=== PATIENT | male | born 1945 | race Caucasian/White ===

== ENCOUNTER 2017-05-26 09:52 | Outpatient (CLI) | payer MEDICARE, OTHER ==
--- NOTE | 2017-05-26 12:04 | CT ---
CT ABDOMEN AND PELVIS WITH CONTRAST: HISTORY: Lymphoma. COMPARISON: There are multiple prior examinations, the most recent 01/15/17. FINDINGS: There is some scarring in the lung bases. No pericardial effusion. 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 The soft tissue attenuation of the proximal small bowel mesentery, throughout the mesenteric vessels is similar. No significant new lymph node enlargement. The haziness in the mesentery is similar. Mild diverticular disease sigmoid colon without active inflammation. The aortoiliac contour is similar. No aneurysmal dilatation. Aria hepatis lymph node is in the same plane of reference and measures 15 mm in short axis, similar to the comparison examination. Mild fatty atrophy of the pancreatic head and neck. Hypodensities of the kidneys are similar. There are moderate degenerative changes of the hip joints with subchondral sclerosis of the acetabulum and cyst formation. There is fusion of the L5-S1 disk s pace. Large bridging L4-5 osteophyte. IMPRESSION: Unchanged examination without evidence of disease progression. POS: [facility]
[2017-05-26] MEDS ORDERED: Iopamidol 370 76% 100 ML VIAL ONE (15:48)
== END 2017-05-26 09:53 | disposition home or self-care (01) ==
LOC: CT 09:52
PROVIDERS: ATTEND Internal Medicine Hematology & Oncology
DX: C85.90 Non-Hodgkin lymphoma, unspecified, unspecified site (principal)
CPT/HCPCS: 36415; 74177; 82565

== ENCOUNTER 2018-04-07 07:44 | Outpatient (CLI) | payer MEDICARE, OTHER ==
[2018-04-07] MEDS ORDERED: ISOVUE-370 76%-LOCM 1 ML ONE (12:00)
--- NOTE | 2018-04-07 12:34 | CT ---
CT ABDOMEN WITH CONTRAST CT PELVIS WITH CONTRAST: DATE: 04/07/2018 HISTORY: A 73-year-old male with C82.93, lymphoma. COMPARISON: 05/26/2017 TECHNIQUE: IV injection of iodinated contrast media: Isovue-370 70 mL. Oral contrast media: Administered. FINDINGS: The spleen is surgically absent. There is an accessory splenule abutting the undersurface of the esau vated left hemidiaphragm. Again noted is the facundo mesentery. Again noted are the multiple irregula rity-shaped, small soft tissue density nodules throughout the mesentery. The enlarged laya hepatis lymph nodes are unchanged. Again noted are the multiple tiny hypodensities throughout the bilateral renal parenchyma, which are too small to characterize, but at least the majority of which represent c ysts. No hydronephrosis. No significantly enlarged iliac chain lymph nodes. Normal urinary bladder , appendix, adrenals, and liver. No major pathology of the pancreas. No abdominal aortic aneurysm. No ascites or small bowel dilation. Sigmoid and descending colonic diverticulosis without diverticu litis. Lung bases are grossly clear. No major interval change overall. No destructive osseous lesi on. IMPRESSION: 1. No significant interval change. 2. Moderately enlarged laya hepatis lymph nodes. 3. Multiple irregularly-shaped, mildly enlarged mesenteric lymph nodes. 4. Facundo mesentery. 5. Status post splenectomy. [facility] POS: [facility]
== END 2018-04-07 07:45 | disposition home or self-care (01) ==
LOC: BICCT 07:44
PROVIDERS: ATTEND Internal Medicine Hematology & Oncology
DX: C85.90 Non-Hodgkin lymphoma, unspecified, unspecified site (principal); R59.0 Localized enlarged lymph nodes; Z90.81 Acquired absence of spleen
CPT/HCPCS: 74177; 82565

== ENCOUNTER 2019-02-24 07:30 | Outpatient (CLI) | payer MEDICARE ==
--- NOTE | 2019-02-24 09:08 | CT ---
CT ABDOMEN AND PELVIS WITH ORAL AND IV CONTRAST: HISTORY: Lymphoma. COMPARISON: 04/07/2018 FINDINGS: The patient is post splenectomy. An axillary splenule under the elevated left hemidiaphragm is again seen. The liver, pancreas and adrenal glands are normal. Bilateral renal cysts are again seen. No joe cified gallstones are noted. There has been interval improvement in the mildly enlarged mesenteric lymph nodes. Enlarged laya hep atis lymph node is again seen and is stable. No retroaortic lymph node abnormalities seen. The small bowel loops are not abnormally dilated. No free air or free fluid is seen in the abdomen or pelvis. There are degenerative changes in the spine. There are vascular calcifications without evide nce of aneurysmal dilatation of the abdominal aorta. IMPRESSION: 1. Stable enlarged laya hepatis lymph nodes. 2. Interval improvement in the mildly enlarged mesenteric lymph nodes since 04/07/2018. POS: [facility]
== END 2019-02-24 07:31 | disposition home or self-care (01) ==
LOC: BICCT 07:30
PROVIDERS: ATTEND Internal Medicine Hematology & Oncology
DX: C85.93 Non-Hodgkin lymphoma, unspecified, intra-abdominal lymph nodes (principal); R59.0 Localized enlarged lymph nodes
CPT/HCPCS: 74177; 82565

== ENCOUNTER 2019-04-17 11:29 | Emergency (ER) | payer MEDICARE ==
[2019-04-17] MEDS ORDERED: Acetaminophen 500 MG TAB ONE (12:12)
--- NOTE | 2019-04-17 12:31 | RAD ---
EXAM: 3 views of the right wrist HISTORY: Wrist pain COMPARISON: None FINDINGS: 3 views of the right wrist shows no evidence of acute fracture or dislocation. No soft tiss ue swelling is seen. No degenerative changes are present. IMPRESSION: No evidence of acute osseous abnormality.
--- NOTE | 2019-04-17 12:32 | RAD ---
EXAM: 4 views of the left knee HISTORY: Knee pain after fall COMPARISON: None FINDINGS: No knee effusion is seen. There is no evidence of acute fracture or dislocation. No signifi cant degenerative changes are seen. No soft tissue swelling is present. IMPRESSION: No evidence of acute osseous abnormality.
--- NOTE | 2019-04-17 12:33 | RAD ---
EXAM: 3 views of the left shoulder HISTORY: Shoulder pain COMPARISON: None FINDINGS: There is no evidence of acute fracture or dislocation. Mild acromioclavicular degenerative changes are present. No soft tissue swelling is seen. The visualized thorax is unremarkable. IMPRESSION: No evidence of acute osseous abnormality.
== END 2019-04-17 12:53 | disposition home or self-care (01) ==
LOC: ERS 11:29
DX: S60.221A Contusion of right hand, initial encounter (principal); S60.211A Contusion of right wrist, initial encounter; I10 Essential (primary) hypertension; E78.00 Pure hypercholesterolemia, unspecified; Z79.899 Other long term (current) drug therapy; W01.0XXA Fall on same level from slipping, tripping and stumbling without subsequent striking against object, initial encounter

== ENCOUNTER 2019-05-18 13:51 | Emergency (ER) | payer MEDICARE ==
--- NOTE | 2019-05-18 14:39 | RAD ---
EXAM: XR Hip Lt 2-3 View PROVIDED CLINICAL HISTORY: Pain FINDINGS: There is no evidence for fracture or other acute osseous abnormality. Alignment appears anatomic. Ellyn nt spaces appear preserved. Mild degenerative changes are seen. IMPRESSION: No evidence for an acute osseous abnormality. If there is persistent clinical concern, conservative m anagement and follow-up imaging advised.
--- NOTE | 2019-05-18 16:08 | CT ---
CT head noncontrast HISTORY: Fall. Head injury. COMPARISON: 06/11/2013. FINDINGS: There is no evidence of acute intracranial hemorrhage or infarct. The ventricles appear nor mal in size, shape and position. Mild chronic ischemic small vessel disease throughout the periventricular white matter. There is no mass effect or shift of midline structures. Visualized sinu ses remain well aerated. IMPRESSION: No acute intracranial abnormalities are demonstrated.
--- NOTE | 2019-05-18 16:13 | CT ---
CT pelvis noncontrast HISTORY: Fall. Pelvic injury. FINDINGS: Degenerative changes of the hips and lower lumbar spine are apparent. Subcortical cysts inv olving each acetabulum. No fractures are evident. Sacrum is intact. Urinary bladder is unremarkable. No fluid collections apparent within the pelvis. Diverticula arise from the sigmoid col on without adjacent inflammation. There is calcification in the arterial structures. IMPRESSION: No acute osseous abnormalities are demonstrated. Diverticulosis. Atherosclerosis.
[2019-05-18] MEDS ORDERED: Ibuprofen 200 MG TAB ONE (16:53)
== END 2019-05-18 17:06 | disposition home or self-care (01) ==
LOC: ERS 13:51
DX: S09.90XA Unspecified injury of head, initial encounter (principal); S70.02XA Contusion of left hip, initial encounter; I10 Essential (primary) hypertension; E78.00 Pure hypercholesterolemia, unspecified; Z79.899 Other long term (current) drug therapy; W18.09XA Striking against other object with subsequent fall, initial encounter; Y92.239 Unspecified place in hospital as the place of occurrence of the external cause
CPT/HCPCS: 70450; 72192

== ENCOUNTER 2020-03-13 12:22 | Emergency (ER) | payer MEDICARE ==
[2020-03-13 18:56] LABS: SARS-CoV-2 MS2 Positive; SARS-CoV-2 N Gene Negative; SARS-CoV-2 S Gene Negative; SARS-CoV-2 by NAA Not Detected (NotDetected); SARS-CoV-2 orf1ab Negative
== END 2020-03-13 13:00 | disposition home or self-care (01) ==
LOC: ERS 12:22
DX: Z20.828 Contact with and (suspected) exposure to other viral communicable diseases (principal); K21.9 Gastro-esophageal reflux disease without esophagitis; E03.9 Hypothyroidism, unspecified; I10 Essential (primary) hypertension; E78.00 Pure hypercholesterolemia, unspecified; J44.9 Chronic obstructive pulmonary disease, unspecified; Z79.899 Other long term (current) drug therapy; Z85.72 Personal history of non-Hodgkin lymphomas; Z87.891 Personal history of nicotine dependence
CPT/HCPCS: 99283; U0003; 87635

== ENCOUNTER 2021-03-23 15:30 | Observation (INO) | payer OTHER, MEDICARE ==
[~2021-03-23 15:30] MED LIST: Iopamidol-370 76% 500 ML 1 ML ONE
[2021-03-23] MEDS ORDERED: Acetaminophen 500 MG TAB ONE (16:03)
[2021-03-23 16:13] LABS: Mean Corpuscular HGB CONC 33.7 g/dL (32.0-36.0); Mean Corpuscular Hemoglobin 31.3 pg (27.0-31.0); Mean Corpuscular Volume 92.7 fL (78.0-98.0); Platelet Count 372 thou/uL (130-400); RBC Distribution Width 13.3 % (11.5-14.5); Red Blood Cell (RBC) Count 4.46 mill/uL (4.70-6.10)
[2021-03-23 16:37] LABS: Eosinophils 3 % (0-10); Lymphocytes 30 % (21-51); MDiff Complete? YES; Monocytes 15 % (0-10); Neutrophil 42 % (42-75); Platelet Morphology Comment Appears Adequate; RBC Morphology Normal; Reactive Lymphocytes 10 % (0-10)
[2021-03-23 16:43] LABS: ALT (SGPT) 20 U/L (8-55); AST (SGOT) 22 U/L (5-34); Albumin 4.1 g/dL (3.4-4.8); Alkaline Phosphatase 112 U/L (40-110); Anion Gap 14 mmol/L (10-20); BUN (Urea Nitrogen) 17 mg/dL (8.4-25.7); Bilirubin, Total 0.7 mg/dL (0.2-1.2); Calc. Creatinine Clearance 0 mL/min (70-130); Calcium 9.7 mg/dL (7.8-10.44); Carbon Dioxide 25 mmol/L (23-31); Chloride 102 mmol/L (98-107); Globulin 3.5 g/dL (2.4-3.5); Glucose 84 mg/dL (83-110); Lipase 17 U/L (8-78); Potassium 4.4 mmol/L (3.5-5.1); Protein, Total 7.6 g/dL (5.8-8.1); Sodium 137 mmol/L (136-145)
[2021-03-23 17:57] LABS: Bilirubin Negative (Negative); Blood, Urine Negative (Negative); Clarity Clear (Clear); Glucose, Urine (Dipstick) Normal (Negative); Ketone, Urine Negative (Negative); Leukocyte Negative Leu/uL (Negative); Nitrite Negative (Negative); Protein, Urine (Dipstick) Negative (Neg-Trace); Specific Gravity, Urine 1.038 (1.002-1.036); Urobilinogen Normal mg/dL (Less than 2); pH, Urine 5.5 (5.0-9.0)
[2021-03-23] MEDS ORDERED: methylPREDNISolone Sod Succ/PF 125 MG/2 ML VIAL ONE ×2 (20:19)
[2021-03-23] MEDS ORDERED: Sodium Chloride 0.9% 1,000 ML IV SCH (22:01)
[2021-03-23] MEDS ORDERED: hydrALAZINE 20 MG/ML VIAL SLOW IVP PRN (22:01)
[2021-03-23] MEDS ORDERED: Dextrose 5% in Water 1,000 ML IV PRN (22:01)
[2021-03-23] MEDS ORDERED: Dextrose 50% Abboject 50 ML SYRINGE SLOW IVP PRN (22:01)
[2021-03-23] MEDS ORDERED: Ondansetron PF 4 MG/2 ML Vial IVP PRN (22:01)
[2021-03-23] MEDS ORDERED: Ondansetron ODT 4 MG TAB PO PRN (22:01)
[2021-03-23] MEDS ORDERED: Famotidine 20 MG TAB PO SCH (22:15)
[2021-03-23 22:50] LABS: Phosphorus 2.8 mg/dL (2.3-4.7)
[2021-03-23] MEDS: Acetaminophen 325 MG TAB PO SCH (23:02)
[2021-03-23] MEDS: Ibuprofen 800 MG TAB PO SCH (23:04)
[2021-03-23 23:05] LABS: Troponin I Less than 0.010 ng/mL (< 0.028)
[2021-03-23 23:28] VITALS: BMI 30.1
[2021-03-24] MEDS: Acetaminophen 325 MG TAB PO SCH ×2 (04:47→09:20)
[2021-03-24 05:26] LABS: Band 1 % (5-11); Lymphocytes 18 % (21-51); MDiff Complete? YES; Mean Corpuscular Hemoglobin 30.1 pg (27.0-31.0); Mean Platelet Volume 8.8 fL (7.4-10.4); Monocytes 11 % (0-10); Neutrophil 70 % (42-75); Platelet Count 349 thou/uL (130-400); Platelet Morphology Comment Appears Adequate; RBC Distribution Width 13.4 % (11.5-14.5); RBC Morphology Normal; Red Blood Cell (RBC) Count 4.64 mill/uL (4.70-6.10); White Blood Cell (WBC) Count 7.6 thou/uL (4.8-10.8)
[2021-03-24 05:38] LABS: Anion Gap 13 mmol/L (10-20); BUN (Urea Nitrogen) 16 mg/dL (8.4-25.7); Calc. Creatinine Clearance 76 mL/min (70-130); Calcium 9.3 mg/dL (7.8-10.44); Carbon Dioxide 20 mmol/L (23-31); Chloride 106 mmol/L (98-107); Glucose 192 mg/dL (83-110); Magnesium 2.1 mg/dL (1.6-2.6); Phosphorus 1.5 mg/dL (2.3-4.7); Potassium 4.3 mmol/L (3.5-5.1); Sodium 135 mmol/L (136-145)
[2021-03-24] MEDS: Ibuprofen 800 MG TAB PO SCH ×2 (06:26→14:14)
[2021-03-24] MEDS ORDERED: Sodium Phosphate 30 MMOL in Sodium Chloride 0.9% 250 ML 250 ML IVPB SCH (08:00)
[2021-03-24] MEDS ORDERED: Famotidine 20 MG TAB PO SCH (09:00)
[2021-03-24 11:23] VITALS: TEMP 97.8
[2021-03-24 14:29] LABS: SARS-CoV-2 PCR by NAA Not Detected (NotDetected)
[2021-03-24 14:58] VITALS: BP 167/84
== END 2021-03-24 14:58 | disposition home or self-care (01) ==
LOC: ERS 15:30 → 2NO 18:39
PROVIDERS: ADMIT Surgery; ATTEND Surgery
DX: S29.8XXA Other specified injuries of thorax, initial encounter (principal); I10 Essential (primary) hypertension; E78.00 Pure hypercholesterolemia, unspecified; J44.9 Chronic obstructive pulmonary disease, unspecified; K21.9 Gastro-esophageal reflux disease without esophagitis; E03.9 Hypothyroidism, unspecified; Z20.822 Contact with and (suspected) exposure to COVID-19; Z96.652 Presence of left artificial knee joint; Z98.890 Other specified postprocedural states; Z79.899 Other long term (current) drug therapy; Z87.891 Personal history of nicotine dependence; Z85.72 Personal history of non-Hodgkin lymphomas; V49.40XA Driver injured in collision with unspecified motor vehicles in traffic accident, initial encounter
CPT/HCPCS: 70450; 71260; 72125; 74177; 80048; 80053; 81003; 83690; 83735 ×2; 84100 ×2; 84484 ×2; 85025 ×2; 93005; 94640 ×2; 96375; 97139 ×2; G0378 ×2; U0003; U0005; 36415; G0390; J2930; J7050; J7620; Q9967

== ENCOUNTER 2021-09-04 16:50 | Inpatient (IN) | payer OTHER ==
[2021-09-04 17:53] LABS: #Basophils 0.1 thou/uL (0.0-0.2); #Eosinphils 0.5 thou/uL (0.0-0.7); #Lymphocytes 5.2 thou/uL (1.20-3.40); #Neutrophils 5.8 thou/uL (1.40-6.50); %Basophils 0.7 % (0.0-1.0); %Eosinophils 3.6 % (0.0-10.0); %Lymphocytes 38.4 % (21.0-51.0); %Monocytes 14.5 % (0.0-10.0); %Neutrophils 42.8 % (42.0-75.0); Hemoglobin 14.6 g/dL (14.0-18.0); Mean Corpuscular Hemoglobin 31.4 pg (27.0-31.0); Mean Corpuscular Volume 95.1 fL (78.0-98.0); Mean Platelet Volume 8.3 fL (7.4-10.4); Platelet Count 358 thou/uL (130-400); RBC Distribution Width 13.5 % (11.5-14.5); Red Blood Cell (RBC) Count 4.65 mill/uL (4.70-6.10); White Blood Cell (WBC) Count 13.6 thou/uL (4.8-10.8)
[2021-09-04 18:10] LABS: ALT (SGPT) 22 U/L (8-55); AST (SGOT) 23 U/L (5-34); Albumin 4.4 g/dL (3.4-4.8); Alkaline Phosphatase 124 U/L (40-110); Anion Gap 15 mmol/L (10-20); BUN (Urea Nitrogen) 14 mg/dL (8.4-25.7); Bilirubin, Total 0.4 mg/dL (0.2-1.2); Calc. Creatinine Clearance 0 mL/min (70-130); Calcium 9.6 mg/dL (7.8-10.44); Carbon Dioxide 26 mmol/L (23-31); Chloride 104 mmol/L (98-107); Globulin 3.5 g/dL (2.4-3.5); Glucose 126 mg/dL (83-110); Lipase 22 U/L (8-78); Protein, Total 7.9 g/dL (5.8-8.1); Sodium 141 mmol/L (136-145)
[2021-09-04] MEDS ORDERED: predniSONE 20 MG TAB ONE (18:24)
[2021-09-04] MEDS ORDERED: Aspirin 325 MG TAB ONE (18:24)
[2021-09-04] MEDS ORDERED: Ondansetron PF 4 MG/2 ML Vial ONE (18:24)
[2021-09-04] MEDS ORDERED: Nitroglycerin 2% Ointment 1 INCH/1 GM Packet ONE (18:24)
[2021-09-04] MEDS ORDERED: Albuterol Sulfate 2.5 mg/3 ml Neb NEB PRN (19:21)
[2021-09-04] MEDS ORDERED: Nitroglycerin 0.4 MG TAB (25 Tab Bottle) SL PRN (19:22)
[2021-09-04] MEDS ORDERED: Ondansetron ODT 4 MG TAB PO PRN (19:26)
[2021-09-04] MEDS ORDERED: Ondansetron PF 4 MG/2 ML Vial IVP PRN (19:26)
[2021-09-04] MEDS ORDERED: Senokot S 8.6-50 MG TAB PO PRN (19:26)
[2021-09-04 19:53] LABS: Bacteria/HPF None Seen HPF (None Seen); Bilirubin Negative (Negative); Blood, Urine Negative (Negative); Clarity Clear (Clear); Glucose, Urine (Dipstick) Normal (Negative); Ketone, Urine Negative (Negative); Leukocyte Negative Leu/uL (Negative); Nitrite Negative (Negative); Protein, Urine (Dipstick) Negative (Neg-Trace); RBC/HPF 0-3 HPF (0-3); Specific Gravity, Urine 1.015 (1.002-1.036); Squamous Epithelial None Seen HPF (0-3); Urobilinogen Normal mg/dL (Less than 2); WBC/HPF 0-3 HPF (0-3); pH, Urine 5.5 (5.0-9.0)
[2021-09-04] MEDS ORDERED: Mometasone 200 MCG/Formoterol 5 MCG 120 PUFF INHALER INH SCH (20:30)
[2021-09-04 20:45] LABS: Troponin I Less than 0.010 ng/mL (< 0.028)
[2021-09-04 23:00] VITALS: BMI 30.9
[2021-09-05 00:08] LABS: Troponin I Less than 0.010 ng/mL (< 0.028)
[2021-09-05 00:11] LABS: SARS-CoV-2 NAA Rapid Test Not Detected (NotDetected)
[2021-09-05] MEDS: Acetaminophen 325 MG TAB PO PRN ×2 (04:55→13:55)
[2021-09-05 05:50] LABS: #Monocytes 0.5 thou/uL (0.11-0.59); #Neutrophils 5.9 thou/uL (1.40-6.50); %Basophils 0.2 % (0.0-1.0); %Lymphocytes 23.7 % (21.0-51.0); %Monocytes 5.5 % (0.0-10.0); %Neutrophils 70.6 % (42.0-75.0); Hemoglobin 14.4 g/dL (14.0-18.0); Mean Corpuscular HGB CONC 33.4 g/dL (32.0-36.0); Mean Corpuscular Hemoglobin 31.5 pg (27.0-31.0); Mean Corpuscular Volume 94.3 fL (78.0-98.0); Mean Platelet Volume 8.5 fL (7.4-10.4); Platelet Count 367 thou/uL (130-400); RBC Distribution Width 13.4 % (11.5-14.5); Red Blood Cell (RBC) Count 4.58 mill/uL (4.70-6.10); White Blood Cell (WBC) Count 8.3 thou/uL (4.8-10.8)
[2021-09-05 05:54] LABS: Anion Gap 14 mmol/L (10-20); BUN (Urea Nitrogen) 15 mg/dL (8.4-25.7); Calc. Creatinine Clearance 91 mL/min (70-130); Calcium 9.6 mg/dL (7.8-10.44); Carbon Dioxide 22 mmol/L (23-31); Chloride 105 mmol/L (98-107); Glucose 159 mg/dL (83-110); Potassium 3.7 mmol/L (3.5-5.1); Sodium 137 mmol/L (136-145)
[2021-09-05] MEDS ORDERED: Levothyroxine Sodium 25 MCG TAB PO SCH (06:00)
[2021-09-05] MEDS: Mometasone 200 MCG/Formoterol 5 MCG 120 PUFF INHALER INH SCH ×2 (06:33→18:35)
[2021-09-05] MEDS: Atorvastatin Calcium 20 MG TAB PO SCH (08:35)
[2021-09-05] MEDS: predniSONE 20 MG TAB PO SCH (08:35)
[2021-09-05] MEDS ORDERED: Amlodipine 5 MG TAB PO SCH (09:00)
[2021-09-05] MEDS ORDERED: Losartan 25 MG TAB PO SCH (09:00)
[2021-09-05] MEDS ORDERED: Hydrochlorothiazide 25 MG TAB PO SCH (09:00)
[2021-09-05] MEDS: Melatonin 3 MG TAB PO PRN (22:02)
[2021-09-06 05:07] LABS: #Basophils 0.1 thou/uL (0.0-0.2); #Eosinphils 0.1 thou/uL (0.0-0.7); #Monocytes 1.9 thou/uL (0.11-0.59); %Basophils 0.6 % (0.0-1.0); %Eosinophils 0.7 % (0.0-10.0); %Neutrophils 55.8 % (42.0-75.0); Hemoglobin 14.6 g/dL (14.0-18.0); Mean Corpuscular HGB CONC 32.8 g/dL (32.0-36.0); Mean Corpuscular Hemoglobin 31.1 pg (27.0-31.0); Mean Corpuscular Volume 94.8 fL (78.0-98.0); Mean Platelet Volume 8.1 fL (7.4-10.4); Platelet Count 349 thou/uL (130-400); RBC Distribution Width 13.6 % (11.5-14.5); Red Blood Cell (RBC) Count 4.69 mill/uL (4.70-6.10); White Blood Cell (WBC) Count 16.1 thou/uL (4.8-10.8)
[2021-09-06 05:25] LABS: Anion Gap 14 mmol/L (10-20); BUN (Urea Nitrogen) 16 mg/dL (8.4-25.7); Calc. Creatinine Clearance 110 mL/min (70-130); Calcium 9.3 mg/dL (7.8-10.44); Carbon Dioxide 23 mmol/L (23-31); Chloride 108 mmol/L (98-107); Glucose 102 mg/dL (83-110); Potassium 3.7 mmol/L (3.5-5.1); Sodium 141 mmol/L (136-145)
[2021-09-06 05:27] LABS: Hemoglobin A1c 6.2 % (4.0-6.0)
[2021-09-06] MEDS: Mometasone 200 MCG/Formoterol 5 MCG 120 PUFF INHALER INH SCH ×2 (06:27→18:55)
[2021-09-06] MEDS: predniSONE 20 MG TAB PO SCH (07:52)
[2021-09-06] MEDS: Atorvastatin Calcium 20 MG TAB PO SCH (07:52)
[2021-09-06] MEDS ORDERED: Meclizine HCl 12.5 MG TAB PO PRN (09:30)
[2021-09-06] MEDS ORDERED: PROPOFOL 20 ML ONE (10:32)
[2021-09-06] MEDS: Acetaminophen 325 MG TAB PO PRN (11:01)
[2021-09-06] MEDS ORDERED: Scopolamine 1.5 mg/72 hour Patch TD SCH (15:00)
[2021-09-06] MEDS: Meclizine HCl 12.5 MG TAB PO SCH (20:40)
[2021-09-06] MEDS: Melatonin 3 MG TAB PO PRN (20:40)
[2021-09-07 05:17] LABS: Band 1 % (5-11); Hemoglobin 13.3 g/dL (14.0-18.0); Lymphocytes 39 % (21-51); MDiff Complete? YES; Mean Corpuscular HGB CONC 32.5 g/dL (32.0-36.0); Mean Corpuscular Hemoglobin 30.9 pg (27.0-31.0); Mean Corpuscular Volume 95.2 fL (78.0-98.0); Mean Platelet Volume 8.2 fL (7.4-10.4); Monocytes 7 % (0-10); Neutrophil 52 % (42-75); Platelet Count 344 thou/uL (130-400); RBC Distribution Width 13.7 % (11.5-14.5); Reactive Lymphocytes 1 % (0-10); Red Blood Cell (RBC) Count 4.31 mill/uL (4.70-6.10)
[2021-09-07 05:21] LABS: Anion Gap 15 mmol/L (10-20); BUN (Urea Nitrogen) 18 mg/dL (8.4-25.7); Calc. Creatinine Clearance 112 mL/min (70-130); Calcium 8.8 mg/dL (7.8-10.44); Carbon Dioxide 20 mmol/L (23-31); Chloride 108 mmol/L (98-107); Glucose 82 mg/dL (83-110); Potassium 4.2 mmol/L (3.5-5.1); Sodium 139 mmol/L (136-145)
[2021-09-07] MEDS ORDERED: predniSONE 20 MG TAB PO SCH (08:00)
[2021-09-07] MEDS: Atorvastatin Calcium 20 MG TAB PO SCH (08:28)
[2021-09-07] MEDS: Meclizine HCl 12.5 MG TAB PO SCH ×2 (08:28→17:07)
[2021-09-07] MEDS: Mometasone 200 MCG/Formoterol 5 MCG 120 PUFF INHALER INH SCH (10:38)
[2021-09-07 16:37] VITALS: BP 157/79; TEMP 97.4
== END 2021-09-07 17:16 | disposition home health service (06) | DRG 191 ==
LOC: ERS 16:50 → 2SW 18:45 → OBSVTOIN 09-06 09:26
PROVIDERS: ADMIT Internal Medicine; ATTEND Hospitalist
DX: J44.1 Chronic obstructive pulmonary disease with (acute) exacerbation (principal); J96.10 Chronic respiratory failure, unspecified whether with hypoxia or hypercapnia; I10 Essential (primary) hypertension; E78.5 Hyperlipidemia, unspecified; K21.9 Gastro-esophageal reflux disease without esophagitis; E03.9 Hypothyroidism, unspecified; Z20.822 Contact with and (suspected) exposure to COVID-19; R73.9 Hyperglycemia, unspecified; T38.0X5A Adverse effect of glucocorticoids and synthetic analogues, initial encounter; Y92.239 Unspecified place in hospital as the place of occurrence of the external cause; E78.00 Pure hypercholesterolemia, unspecified; D72.829 Elevated white blood cell count, unspecified; I45.10 Unspecified right bundle-branch block; Z90.81 Acquired absence of spleen; Z98.890 Other specified postprocedural states; Z79.899 Other long term (current) drug therapy; Z87.891 Personal history of nicotine dependence; Z99.81 Dependence on supplemental oxygen
CPT/HCPCS: 36415; 70450; 70551; 71045; 80048; 80053; 81001; 83036; 83690; 83880; 84443; 84484; 85025; 93005; 93306; 93880; 94640; 94760; J2405; J2704; J7512; J7620

== ENCOUNTER 2022-03-27 08:52 | Emergency (ER) | payer MEDICARE, OTHER | END 2022-03-27 10:40 | disposition home or self-care (01) | LOC: ERS 08:52 | DX: U07.1 COVID-19 (principal); K21.9 Gastro-esophageal reflux disease without esophagitis; I10 Essential (primary) hypertension; E78.00 Pure hypercholesterolemia, unspecified; J44.9 Chronic obstructive pulmonary disease, unspecified; Z87.891 Personal history of nicotine dependence; Z79.899 Other long term (current) drug therapy | CPT/HCPCS: 71045 ==

== ENCOUNTER 2022-05-10 08:50 | Observation (INO) | payer OTHER ==
[2022-05-10 09:27] LABS: #Basophils 0.1 thou/uL (0.0-0.2); #Eosinphils 0.4 thou/uL (0.0-0.7); #Lymphocytes 5.2 thou/uL (1.20-3.40); #Neutrophils 6.9 thou/uL (1.40-6.50); %Basophils 0.6 % (0.0-1.0); %Eosinophils 2.8 % (0.0-10.0); %Lymphocytes 35.9 % (21.0-51.0); %Monocytes 13.4 % (0.0-10.0); %Neutrophils 47.4 % (42.0-75.0); Hemoglobin 14.4 g/dL (14.0-18.0); Mean Corpuscular HGB CONC 33.1 g/dL (32.0-36.0); Mean Corpuscular Hemoglobin 31.4 pg (27.0-31.0); Mean Corpuscular Volume 94.9 fl (78.0-98.0); Mean Platelet Volume 8.4 fL (7.4-10.4); Platelet Count 389 10x3/uL (130-400); RBC Distribution Width 13.6 % (11.5-14.5); Red Blood Cell (RBC) Count 4.58 mill/uL (4.70-6.10); White Blood Cell (WBC) Count 14.6 10x3/uL (4.8-10.8)
[2022-05-10 09:49] LABS: ALT (SGPT) 20 U/L (8-55); AST (SGOT) 22 U/L (5-34); Albumin 4.1 g/dL (3.4-4.8); Alkaline Phosphatase 114 U/L (40-110); Anion Gap 14 mmol/L (10-20); BUN (Urea Nitrogen) 21 mg/dL (8.4-25.7); Bilirubin, Total 0.8 mg/dL (0.2-1.2); Calc. Creatinine Clearance 0 mL/min (70-130); Calcium 9.9 mg/dL (7.8-10.44); Carbon Dioxide 22 mmol/L (23-31); Chloride 105 mmol/L (98-107); Estimated GFR 79; Globulin 3.9 g/dL (2.4-3.5); Glucose 107 mg/dL (83-110); Potassium 3.8 mmol/L (3.5-5.1); Sodium 137 mmol/L (136-145)
[2022-05-10] MEDS ORDERED: Iopamidol-370 76% 500 ML 1 ML ONE (10:43)
[2022-05-10] MEDS ORDERED: Aspirin Chewable 81 MG TAB ONE (11:04)
[2022-05-10] MEDS ORDERED: Nitroglycerin 0.4 MG TAB 1 EACH ONE (11:04)
[2022-05-10] MEDS ORDERED: Ondansetron PF 4 MG/2 ML Vial IVP PRN (14:38)
[2022-05-10] MEDS ORDERED: Ondansetron PF 4 MG/2 ML Vial ONE (15:52)
[2022-05-10 16:09] VITALS: BMI 29.8
[2022-05-10 16:28] LABS: Troponin I Less than 0.010 ng/mL (< 0.028)
[2022-05-10] MEDS ORDERED: Albuterol Sulfate 1.25 MG/3 ML NEB NEB PRN (18:19)
[2022-05-10] MEDS ORDERED: Nitroglycerin 0.4 MG TAB (25 Tab Bottle) SL PRN (19:17)
[2022-05-10] MEDS: Acetaminophen 325 MG TAB PO PRN (20:22)
[2022-05-10] MEDS ORDERED: Famotidine 20 MG TAB PO SCH (21:00)
[2022-05-10] MEDS ORDERED: Atorvastatin Calcium 40 MG TAB PO SCH (21:00)
[2022-05-11 05:44] LABS: #Basophils 0.1 thou/uL (0.0-0.2); #Eosinphils 0.4 thou/uL (0.0-0.7); #Lymphocytes 4.1 thou/uL (1.20-3.40); #Monocytes 1.4 thou/uL (0.11-0.59); #Neutrophils 5.6 thou/uL (1.40-6.50); %Eosinophils 3.6 % (0.0-10.0); %Lymphocytes 35.5 % (21.0-51.0); %Monocytes 11.9 % (0.0-10.0); Hemoglobin 14.3 g/dL (14.0-18.0); Mean Corpuscular HGB CONC 34.3 g/dL (32.0-36.0); Mean Corpuscular Hemoglobin 32.4 pg (27.0-31.0); Mean Corpuscular Volume 94.3 fl (78.0-98.0); Mean Platelet Volume 9.2 fL (7.4-10.4); Platelet Count 325 10x3/uL (130-400); RBC Distribution Width 13.6 % (11.5-14.5); Red Blood Cell (RBC) Count 4.41 mill/uL (4.70-6.10); White Blood Cell (WBC) Count 11.6 10x3/uL (4.8-10.8)
[2022-05-11 06:09] LABS: Anion Gap 14 mmol/L (10-20); BUN (Urea Nitrogen) 20 mg/dL (8.4-25.7); Calc. Creatinine Clearance 83 mL/min (70-130); Calcium 9.9 mg/dL (7.8-10.44); Carbon Dioxide 24 mmol/L (23-31); Chloride 103 mmol/L (98-107); Estimated GFR 72; Glucose 92 mg/dL (83-110); Potassium 3.8 mmol/L (3.5-5.1); Sodium 137 mmol/L (136-145)
[2022-05-11] MEDS ORDERED: Mometasone 200 MCG/Formoterol 5 MCG 120 PUFF INHALER INH SCH ×2 (06:30→18:30)
[2022-05-11] MEDS ORDERED: Enoxaparin Sodium 40 MG/0.4 ML SYRINGE SC SCH (09:00)
[2022-05-11] MEDS ORDERED: Aspirin Chewable 81 MG TAB PO SCH (09:00)
[2022-05-11] MEDS ORDERED: Non-Formulary Item 1 EACH (Fluticasone/Salmeterol [Wixela 250-50 Inhub] 1 EACH Blst.W.Dev IH SCH (09:00)
[2022-05-11] MEDS ORDERED: Atorvastatin Calcium 20 MG TAB PO SCH (09:00)
[2022-05-11] MEDS ORDERED: Non-Formulary Item 1 EACH (Hydrochlorothiazide [Hydrochlorothiazide] 12.5 MG Capsule) PO SCH (09:00)
[2022-05-11] MEDS ORDERED: Amlodipine 10 MG TAB PO SCH (09:00)
[2022-05-11] MEDS ORDERED: Hydrochlorothiazide 25 MG TAB PO SCH (09:00)
[2022-05-11] MEDS ORDERED: Losartan 25 MG TAB PO SCH (09:00)
[2022-05-11] MEDS ORDERED: Non-Formulary Item 1 EACH (Levothyroxine Sodium [Levothyroxine] 25 MCG Capsule) PO SCH (09:00)
[2022-05-11] MEDS ORDERED: Regadenoson 0.4 MG/5 ML SYRINGE ONE (09:56)
[2022-05-11 11:39] VITALS: TEMP 97.5
[2022-05-11] MEDS: Acetaminophen 325 MG TAB PO PRN (11:40)
[2022-05-11 12:43] VITALS: BP 106/53
[2022-05-12] MEDS ORDERED: Levothyroxine Sodium 25 MCG TAB PO SCH (06:00)
== END 2022-05-11 14:19 | disposition home or self-care (01) ==
LOC: ERS 08:50 → ERHOLD 14:45 → 2SW 17:25
PROVIDERS: ADMIT Internal Medicine; ATTEND Nurse Practitioner Acute Care
DX: R07.2 Precordial pain (principal); I10 Essential (primary) hypertension; J44.9 Chronic obstructive pulmonary disease, unspecified; E03.9 Hypothyroidism, unspecified; K21.9 Gastro-esophageal reflux disease without esophagitis; N28.1 Cyst of kidney, acquired; E78.00 Pure hypercholesterolemia, unspecified; Z85.72 Personal history of non-Hodgkin lymphomas; Z87.891 Personal history of nicotine dependence; Z79.899 Other long term (current) drug therapy; Z79.890 Hormone replacement therapy; Z20.822 Contact with and (suspected) exposure to COVID-19
CPT/HCPCS: 71045; 71275; 74174; 78452; 80048; 80053; 83690; 83880; 84484 ×2; 85025 ×2; 85379; 93005; 93017; 94760; 99285; A9500; U0003; U0005; 36415; 96372; 96374; G0378; J1650; J2405; J2785; Q9967

== ENCOUNTER 2023-01-02 08:41 | Inpatient (IN) | payer MEDICARE ==
[2023-01-02] MEDS ORDERED: cefTRIAXone (ROCEPHIN) 1 GM VIAL ONE (09:03)
[2023-01-02] MEDS ORDERED: methylPREDNISolone Sod Succ/PF 125 MG/2 ML VIAL ONE (09:04)
[2023-01-02] MEDS ORDERED: Albuterol 2.5 MG/0.5 ML NEB ONE ×3 (09:07→09:08)
[2023-01-02 09:08] LABS: #Basophils 0.1 thou/uL (0.0-0.2); #Eosinphils 0.3 thou/uL (0.0-0.7); #Monocytes 2.5 thou/uL (0.11-0.59); #Neutrophils 9.9 thou/uL (1.40-6.50); %Basophils 0.5 % (0.0-1.0); %Eosinophils 1.6 % (0.0-10.0); %Lymphocytes 22.6 % (21.0-51.0); %Monocytes 15.3 % (0.0-10.0); %Neutrophils 59.6 % (42.0-75.0); Hematocrit 40.8 % (42.0-52.0); Mean Corpuscular HGB CONC 34.3 g/dL (32.0-36.0); Mean Corpuscular Hemoglobin 29.9 pg (27.0-31.0); Mean Platelet Volume 10.4 fL (7.4-10.4); Platelet Count 393 10x3/uL (130-400); RBC Distribution Width 15.1 % (11.5-14.5); Red Blood Cell (RBC) Count 4.69 mill/uL (4.70-6.10); White Blood Cell (WBC) Count 16.7 10x3/uL (4.8-10.8)
[2023-01-02] MEDS ORDERED: Ipratropium Bromide 2.5 ml Neb ONE ×2 (09:08)
[2023-01-02 09:30] LABS: ALT (SGPT) 17 U/L (8-55); AST (SGOT) 20 U/L (5-34); Albumin 4.2 g/dL (3.4-4.8); Alkaline Phosphatase 120 U/L (40-110); Anion Gap 16 mmol/L (10-20); BUN (Urea Nitrogen) 19 mg/dL (8.4-25.7); Calc. Creatinine Clearance 0 mL/min (70-130); Carbon Dioxide 22 mmol/L (23-31); Chloride 103 mmol/L (98-107); Estimated GFR 53; Glucose 106 mg/dL (83-110); Potassium 3.5 mmol/L (3.5-5.1); Protein, Total 8.2 g/dL (5.8-8.1); Sodium 137 mmol/L (136-145)
[2023-01-02 09:43] LABS: Troponin I Less than 0.010 ng/mL (< 0.028)
[2023-01-02] MEDS ORDERED: Azithromycin 500 MG VIAL ONE (09:44)
[2023-01-02 10:47] LABS: SARS-CoV-2 NAA Rapid Test Not Detected (NotDetected)
[2023-01-02] MEDS ORDERED: Magnesium 2 GM/50 ML BAG (IN WATER) ONE (11:23)
[2023-01-02 11:51] LABS: Bacteria/HPF None Seen HPF (None Seen); Bilirubin Negative (Negative); Blood, Urine Negative (Negative); CAUTI Indications for Culture Fever or rigors; Clarity Clear (Clear); Glucose, Urine (Dipstick) Normal (Negative); Ketone, Urine Negative (Negative); Leukocyte Negative Leu/uL (Negative); Nitrite Negative (Negative); Protein, Urine (Dipstick) Negative (Neg-Trace); RBC/HPF 0-3 HPF (0-3); Specific Gravity, Urine 1.012 (1.002-1.036); Squamous Epithelial 0-3 HPF (0-3); Urobilinogen Normal mg/dL (Less than 2); WBC/HPF 0-3 HPF (0-3); pH, Urine 5.5 (5.0-9.0)
[2023-01-02 11:53] LABS: Urine Culture Reflex No No
[2023-01-02] MEDS ORDERED: hydrALAZINE 20 MG/ML VIAL SLOW IVP PRN (11:59)
[2023-01-02] MEDS ORDERED: Acetaminophen 325 MG TAB PO PRN (11:59)
[2023-01-02] MEDS ORDERED: Calcium Carbonate 500 MG ChewTAB PO PRN (11:59)
[2023-01-02] MEDS ORDERED: Benzonatate 100 MG CAP PO PRN (12:03)
[2023-01-02] MEDS ORDERED: guaiFENesin 200 MG TAB PO PRN (12:03)
[2023-01-02] MEDS ORDERED: Iopamidol-370 76% 500 ML MDV (1 ML CHARGE) ONE (12:49)
[2023-01-02 13:08] VITALS: BMI 29.8
[2023-01-02] MEDS: Ipratropium/Albuterol 3 ML NEB NEB SCH ×3 (14:03→23:31)
[2023-01-02] MEDS: Nitroglycerin 0.4 MG TAB (25 Tab Bottle) SL PRN (15:38)
[2023-01-02 15:54] LABS: Troponin I Less than 0.010 ng/mL (< 0.028)
[2023-01-02] MEDS: Budesonide 0.5 MG/2 ML NEB NEB SCH (18:15)
[2023-01-02] MEDS: Arformoterol 15 MCG/2 ML NEB NEB SCH (18:15)
[2023-01-02 18:58] LABS: Troponin I Less than 0.010 ng/mL (< 0.028)
[2023-01-02] MEDS: Atorvastatin Calcium 20 MG TAB PO SCH (20:13)
[2023-01-02 22:34] LABS: Troponin I Less than 0.010 ng/mL (< 0.028)
[2023-01-03 06:35] LABS: #Monocytes 1.1 thou/uL (0.11-0.59); #Neutrophils 15.1 thou/uL (1.40-6.50); %Basophils 0.2 % (0.0-1.0); %Lymphocytes 10.2 % (21.0-51.0); %Neutrophils 82.8 % (42.0-75.0); Hematocrit 37.6 % (42.0-52.0); Hemoglobin 12.7 g/dL (14.0-18.0); Mean Corpuscular HGB CONC 33.8 g/dL (32.0-36.0); Mean Corpuscular Hemoglobin 29.8 pg (27.0-31.0); Mean Corpuscular Volume 88.3 fl (78.0-98.0); Mean Platelet Volume 11.2 fL (7.4-10.4); Platelet Count 367 10x3/uL (130-400); RBC Distribution Width 15.8 % (11.5-14.5); Red Blood Cell (RBC) Count 4.26 mill/uL (4.70-6.10); White Blood Cell (WBC) Count 18.2 10x3/uL (4.8-10.8)
[2023-01-03] MEDS: Ipratropium/Albuterol 3 ML NEB NEB SCH ×4 (06:50→23:44)
[2023-01-03] MEDS: Budesonide 0.5 MG/2 ML NEB NEB SCH ×2 (06:51→19:43)
[2023-01-03] MEDS: Arformoterol 15 MCG/2 ML NEB NEB SCH ×2 (06:51→19:43)
[2023-01-03 06:56] LABS: Anion Gap 17 mmol/L (10-20); BUN (Urea Nitrogen) 31 mg/dL (8.4-25.7); Calc. Creatinine Clearance 59 mL/min (70-130); Calcium 9.7 mg/dL (7.8-10.44); Carbon Dioxide 18 mmol/L (23-31); Chloride 107 mmol/L (98-107); Estimated GFR 48; Glucose 146 mg/dL (83-110); Potassium 4.1 mmol/L (3.5-5.1); Sodium 138 mmol/L (136-145)
[2023-01-03] MEDS: cefTRIAXone\\ROCEPHIN 2 GM in Sodium Chloride 0.9% 100 ML IVPB SCH (08:34)
[2023-01-03] MEDS: predniSONE 20 MG TAB PO SCH (08:34)
[2023-01-03] MEDS: Doxycycline 100 MG CAP PO SCH ×2 (08:34→20:22)
[2023-01-03] MEDS ORDERED: Azithromycin 250 MG TAB PO SCH (09:00)
[2023-01-03] MEDS ORDERED: Non-Formulary Item 1 EACH (Levothyroxine Sodium [Levothyroxine Sodium] 25 MCG Capsule) PO SCH (09:00)
[2023-01-03] MEDS: Sodium Chloride 0.9% 1,000 ML IV SCH (09:33)
[2023-01-03] MEDS: Atorvastatin Calcium 20 MG TAB PO SCH (20:22)
[2023-01-04] MEDS: Sodium Chloride 0.9% 1,000 ML IV SCH (05:21)
[2023-01-04] MEDS: Levothyroxine Sodium 25 MCG TAB PO SCH (05:22)
[2023-01-04 05:38] LABS: #Basophils 0.1 thou/uL (0.0-0.2); #Neutrophils 16.4 thou/uL (1.40-6.50); %Basophils 0.3 % (0.0-1.0); %Eosinophils 0.1 % (0.0-10.0); %Lymphocytes 20.3 % (21.0-51.0); %Monocytes 8.5 % (0.0-10.0); %Neutrophils 70.3 % (42.0-75.0); Hematocrit 35.9 % (42.0-52.0); Mean Corpuscular HGB CONC 33.4 g/dL (32.0-36.0); Mean Corpuscular Hemoglobin 29.9 pg (27.0-31.0); Mean Corpuscular Volume 89.5 fl (78.0-98.0); Mean Platelet Volume 11.1 fL (7.4-10.4); Platelet Count 370 10x3/uL (130-400); RBC Distribution Width 16.1 % (11.5-14.5); Red Blood Cell (RBC) Count 4.01 mill/uL (4.70-6.10); White Blood Cell (WBC) Count 23.3 10x3/uL (4.8-10.8)
[2023-01-04 06:03] LABS: Anion Gap 13 mmol/L (10-20); BUN (Urea Nitrogen) 30 mg/dL (8.4-25.7); Calc. Creatinine Clearance 72 mL/min (70-130); Calcium 8.9 mg/dL (7.8-10.44); Carbon Dioxide 23 mmol/L (23-31); Chloride 107 mmol/L (98-107); Estimated GFR 61; Glucose 109 mg/dL (83-110); Potassium 3.7 mmol/L (3.5-5.1); Sodium 139 mmol/L (136-145)
[2023-01-04] MEDS: Doxycycline 100 MG CAP PO SCH ×2 (08:25→20:20)
[2023-01-04] MEDS: predniSONE 20 MG TAB PO SCH (08:26)
[2023-01-04] MEDS: cefTRIAXone\\ROCEPHIN 2 GM in Sodium Chloride 0.9% 100 ML IVPB SCH (08:26)
[2023-01-04] MEDS: Budesonide 0.5 MG/2 ML NEB NEB SCH ×2 (15:53→18:44)
[2023-01-04] MEDS: Arformoterol 15 MCG/2 ML NEB NEB SCH ×2 (15:53→18:44)
[2023-01-04] MEDS: Ipratropium/Albuterol 3 ML NEB NEB SCH ×3 (15:54→23:58)
[2023-01-04] MEDS: Atorvastatin Calcium 20 MG TAB PO SCH (20:20)
[2023-01-05 04:52] LABS: #Basophils 0.1 thou/uL (0.0-0.2); #Monocytes 2.1 thou/uL (0.11-0.59); #Neutrophils 10.5 thou/uL (1.40-6.50); %Basophils 0.3 % (0.0-1.0); %Eosinophils 0.2 % (0.0-10.0); %Lymphocytes 33.9 % (21.0-51.0); %Monocytes 10.7 % (0.0-10.0); %Neutrophils 54.3 % (42.0-75.0); Hematocrit 36.5 % (42.0-52.0); Hemoglobin 12.5 g/dL (14.0-18.0); Mean Corpuscular HGB CONC 34.2 g/dL (32.0-36.0); Mean Corpuscular Volume 87.5 fl (78.0-98.0); Mean Platelet Volume 11.3 fL (7.4-10.4); Platelet Count 276 10x3/uL (130-400); Red Blood Cell (RBC) Count 4.17 mill/uL (4.70-6.10); White Blood Cell (WBC) Count 19.3 10x3/uL (4.8-10.8)
[2023-01-05 05:15] LABS: Anion Gap 13 mmol/L (10-20); BUN (Urea Nitrogen) 25 mg/dL (8.4-25.7); Calc. Creatinine Clearance 91 mL/min (70-130); Carbon Dioxide 20 mmol/L (23-31); Chloride 110 mmol/L (98-107); Estimated GFR 80; Glucose 78 mg/dL (83-110); Potassium 4.3 mmol/L (3.5-5.1); Sodium 139 mmol/L (136-145)
[2023-01-05] MEDS: Levothyroxine Sodium 25 MCG TAB PO SCH (05:21)
[2023-01-05] MEDS: Arformoterol 15 MCG/2 ML NEB NEB SCH ×2 (08:46→18:49)
[2023-01-05] MEDS: Ipratropium/Albuterol 3 ML NEB NEB SCH ×4 (08:47→23:45)
[2023-01-05] MEDS: Budesonide 0.5 MG/2 ML NEB NEB SCH ×2 (08:47→18:49)
[2023-01-05] MEDS: predniSONE 20 MG TAB PO SCH (08:51)
[2023-01-05] MEDS: cefTRIAXone\\ROCEPHIN 2 GM in Sodium Chloride 0.9% 100 ML IVPB SCH (08:52)
[2023-01-05] MEDS: Doxycycline 100 MG CAP PO SCH ×2 (10:57→20:46)
[2023-01-05] MEDS: Atorvastatin Calcium 20 MG TAB PO SCH (21:38)
[2023-01-06 05:35] LABS: #Eosinphils 0.1 thou/uL (0.0-0.7); #Monocytes 1.8 thou/uL (0.11-0.59); #Neutrophils 8.2 thou/uL (1.40-6.50); %Basophils 0.2 % (0.0-1.0); %Eosinophils 0.4 % (0.0-10.0); %Lymphocytes 39.3 % (21.0-51.0); %Monocytes 10.9 % (0.0-10.0); %Neutrophils 48.4 % (42.0-75.0); Hematocrit 35.5 % (42.0-52.0); Hemoglobin 11.9 g/dL (14.0-18.0); Mean Corpuscular HGB CONC 33.5 g/dL (32.0-36.0); Mean Corpuscular Hemoglobin 29.5 pg (27.0-31.0); Mean Corpuscular Volume 88.1 fl (78.0-98.0); Mean Platelet Volume 10.6 fL (7.4-10.4); Platelet Count 366 10x3/uL (130-400); RBC Distribution Width 15.8 % (11.5-14.5); Red Blood Cell (RBC) Count 4.03 mill/uL (4.70-6.10); White Blood Cell (WBC) Count 16.9 10x3/uL (4.8-10.8)
[2023-01-06] MEDS: Levothyroxine Sodium 25 MCG TAB PO SCH (05:40)
[2023-01-06 05:59] LABS: Anion Gap 11 mmol/L (10-20); BUN (Urea Nitrogen) 25 mg/dL (8.4-25.7); Calc. Creatinine Clearance 90 mL/min (70-130); Calcium 9.4 mg/dL (7.8-10.44); Carbon Dioxide 23 mmol/L (23-31); Chloride 107 mmol/L (98-107); Estimated GFR 79; Glucose 76 mg/dL (83-110); Potassium 3.8 mmol/L (3.5-5.1); Sodium 137 mmol/L (136-145)
[2023-01-06] MEDS: Ipratropium/Albuterol 3 ML NEB NEB SCH ×4 (07:06→23:11)
[2023-01-06] MEDS: Budesonide 0.5 MG/2 ML NEB NEB SCH ×2 (07:07→19:12)
[2023-01-06] MEDS: Arformoterol 15 MCG/2 ML NEB NEB SCH ×2 (07:07→19:12)
[2023-01-06] MEDS: Doxycycline 100 MG CAP PO SCH ×2 (08:15→20:32)
[2023-01-06] MEDS: predniSONE 20 MG TAB PO SCH (08:15)
[2023-01-06] MEDS: cefTRIAXone\\ROCEPHIN 2 GM in Sodium Chloride 0.9% 100 ML IVPB SCH (09:28)
[2023-01-06] MEDS: Atorvastatin Calcium 20 MG TAB PO SCH (20:32)
[2023-01-07 04:53] LABS: #Eosinphils 0.2 thou/uL (0.0-0.7); #Monocytes 1.9 thou/uL (0.11-0.59); %Basophils 0.2 % (0.0-1.0); %Eosinophils 0.9 % (0.0-10.0); %Lymphocytes 39.9 % (21.0-51.0); %Neutrophils 48.3 % (42.0-75.0); Hematocrit 36.4 % (42.0-52.0); Hemoglobin 12.2 g/dL (14.0-18.0); Mean Corpuscular HGB CONC 33.5 g/dL (32.0-36.0); Mean Corpuscular Hemoglobin 29.8 pg (27.0-31.0); Mean Platelet Volume 10.6 fL (7.4-10.4); Platelet Count 371 10x3/uL (130-400); RBC Distribution Width 15.6 % (11.5-14.5); Red Blood Cell (RBC) Count 4.09 mill/uL (4.70-6.10); White Blood Cell (WBC) Count 18.7 10x3/uL (4.8-10.8)
[2023-01-07 05:18] LABS: Anion Gap 11 mmol/L (10-20); BUN (Urea Nitrogen) 25 mg/dL (8.4-25.7); Calc. Creatinine Clearance 95 mL/min (70-130); Calcium 9.1 mg/dL (7.8-10.44); Carbon Dioxide 24 mmol/L (23-31); Chloride 109 mmol/L (98-107); Estimated GFR 85; Glucose 86 mg/dL (83-110); Potassium 3.9 mmol/L (3.5-5.1); Sodium 140 mmol/L (136-145)
[2023-01-07] MEDS: Levothyroxine Sodium 25 MCG TAB PO SCH (06:28)
[2023-01-07] MEDS: Ipratropium/Albuterol 3 ML NEB NEB SCH ×4 (07:34→23:40)
[2023-01-07] MEDS: Arformoterol 15 MCG/2 ML NEB NEB SCH ×3 (07:36→18:26)
[2023-01-07] MEDS: Budesonide 0.5 MG/2 ML NEB NEB SCH ×2 (07:37→18:26)
[2023-01-07] MEDS: Nitroglycerin 0.4 MG TAB (25 Tab Bottle) SL PRN ×2 (08:24→09:04)
[2023-01-07] MEDS: predniSONE 20 MG TAB PO SCH (09:49)
[2023-01-07] MEDS: Doxycycline 100 MG CAP PO SCH ×2 (09:49→20:27)
[2023-01-07] MEDS: cefTRIAXone\\ROCEPHIN 2 GM in Sodium Chloride 0.9% 100 ML IVPB SCH (09:53)
[2023-01-07] MEDS ORDERED: Losartan 25 MG TAB PO SCH (10:45)
[2023-01-07] MEDS ORDERED: Amlodipine 10 MG TAB PO SCH (10:45)
[2023-01-07 11:57] LABS: Troponin I Less than 0.010 ng/mL (< 0.028)
[2023-01-07] MEDS ORDERED: HYDROcodone/Acetaminophen 5/325 mg Tablet PO SCH (13:30)
[2023-01-07] MEDS: Atorvastatin Calcium 20 MG TAB PO SCH (20:27)
[2023-01-08] MEDS: Levothyroxine Sodium 25 MCG TAB PO SCH (05:39)
[2023-01-08 06:07] LABS: Hematocrit 36.7 % (42.0-52.0); Hemoglobin 12.4 g/dL (14.0-18.0); Mean Corpuscular HGB CONC 33.8 g/dL (32.0-36.0); Mean Corpuscular Volume 88.9 fl (78.0-98.0); Platelet Count 398 10x3/uL (130-400); RBC Distribution Width 15.8 % (11.5-14.5); Red Blood Cell (RBC) Count 4.13 mill/uL (4.70-6.10)
[2023-01-08 06:12] LABS: Delete Auto Diff?? YES; Manual Diff?? YES
[2023-01-08 06:26] LABS: Anion Gap 12 mmol/L (10-20); BUN (Urea Nitrogen) 25 mg/dL (8.4-25.7); Calc. Creatinine Clearance 94 mL/min (70-130); Calcium 9.3 mg/dL (7.8-10.44); Carbon Dioxide 22 mmol/L (23-31); Chloride 108 mmol/L (98-107); Estimated GFR 84; Glucose 75 mg/dL (83-110); Potassium 3.9 mmol/L (3.5-5.1); Sodium 138 mmol/L (136-145)
[2023-01-08 06:37] LABS: Band 1 % (5-11); CellaVision Operator ID lab.abc; Lymphocytes 23 % (21-51); Monocytes 8 % (0-10); Neutrophil 66 % (42-75); Nucleated RBC (Manual Ct) 1 % (0); Platelet Adequacy Comment Platelets Normal; Total Cell Count 100
[2023-01-08] MEDS: Ipratropium/Albuterol 3 ML NEB NEB SCH ×4 (07:57→23:11)
[2023-01-08] MEDS: Arformoterol 15 MCG/2 ML NEB NEB SCH (07:59)
[2023-01-08] MEDS: Budesonide 0.5 MG/2 ML NEB NEB SCH ×2 (08:00→18:52)
[2023-01-08] MEDS: Doxycycline 100 MG CAP PO SCH ×2 (09:33→20:59)
[2023-01-08] MEDS: cefTRIAXone\\ROCEPHIN 2 GM in Sodium Chloride 0.9% 100 ML IVPB SCH (09:33)
[2023-01-08] MEDS: Amlodipine 10 MG TAB PO SCH (09:33)
[2023-01-08] MEDS: predniSONE 20 MG TAB PO SCH (09:34)
[2023-01-08] MEDS: Losartan 25 MG TAB PO SCH (09:34)
[2023-01-08] MEDS ORDERED: diphenhydrAMINE 30 GM TUBE TOP PRN (10:13)
[2023-01-08] MEDS ORDERED: Ketoconazole 2% Cream 15 gm Tube TOP SCH (15:40)
[2023-01-08] MEDS ORDERED: Triamcinolone 0.1% Cream 15 GM TUBE TOP SCH (16:00)
[2023-01-08] MEDS: Atorvastatin Calcium 20 MG TAB PO SCH (20:59)
[2023-01-09] MEDS: Triamcinolone 0.1% Cream 15 GM TUBE TOP SCH ×2 (00:37→09:17)
[2023-01-09] MEDS: Levothyroxine Sodium 25 MCG TAB PO SCH (05:11)
[2023-01-09 05:56] LABS: #Basophils 0.1 thou/uL (0.0-0.2); #Monocytes 1.7 thou/uL (0.11-0.59); #Neutrophils 10.9 thou/uL (1.40-6.50); %Basophils 0.3 % (0.0-1.0); %Eosinophils 0.2 % (0.0-10.0); %Lymphocytes 29.9 % (21.0-51.0); %Monocytes 9.5 % (0.0-10.0); %Neutrophils 59.2 % (42.0-75.0); Hematocrit 39.6 % (42.0-52.0); Hemoglobin 13.5 g/dL (14.0-18.0); Mean Corpuscular HGB CONC 34.1 g/dL (32.0-36.0); Mean Corpuscular Hemoglobin 29.9 pg (27.0-31.0); Mean Corpuscular Volume 87.8 fl (78.0-98.0); Mean Platelet Volume 11.2 fL (7.4-10.4); Platelet Count 396 10x3/uL (130-400); RBC Distribution Width 15.7 % (11.5-14.5); Red Blood Cell (RBC) Count 4.51 mill/uL (4.70-6.10); White Blood Cell (WBC) Count 18.4 10x3/uL (4.8-10.8)
[2023-01-09 06:15] LABS: Anion Gap 13 mmol/L (10-20); BUN (Urea Nitrogen) 26 mg/dL (8.4-25.7); Calc. Creatinine Clearance 82 mL/min (70-130); Calcium 9.7 mg/dL (7.8-10.44); Carbon Dioxide 23 mmol/L (23-31); Chloride 107 mmol/L (98-107); Estimated GFR 71; Glucose 83 mg/dL (83-110); Potassium 4.2 mmol/L (3.5-5.1); Sodium 139 mmol/L (136-145)
[2023-01-09] MEDS: Arformoterol 15 MCG/2 ML NEB NEB SCH (06:18)
[2023-01-09] MEDS: Budesonide 0.5 MG/2 ML NEB NEB SCH (06:22)
[2023-01-09] MEDS: Ipratropium/Albuterol 3 ML NEB NEB SCH ×2 (06:23→13:25)
[2023-01-09] MEDS ORDERED: Ketoconazole 2% Cream 15 gm Tube TOP SCH (09:00)
[2023-01-09] MEDS: Losartan 25 MG TAB PO SCH (09:14)
[2023-01-09] MEDS: Amlodipine 10 MG TAB PO SCH (09:15)
[2023-01-09] MEDS: Doxycycline 100 MG CAP PO SCH (09:15)
[2023-01-09] MEDS: cefTRIAXone\\ROCEPHIN 2 GM in Sodium Chloride 0.9% 100 ML IVPB SCH (09:46)
[2023-01-09 16:16] LABS: A. flavus Negative (Neg:<1:1); A. fumigatus Negative (Neg:<1:1); A. niger Negative (Neg:<1:1)
[2023-01-09 16:34] VITALS: BP 144/72; TEMP 97.7
== END 2023-01-09 17:36 | disposition home or self-care (01) | DRG 193 ==
LOC: ERS 08:41 → T4-B 11:23 → 2SW 17:02 → OBSVTOIN 01-03 09:38 → 2SW 01-06 18:07
PROVIDERS: ADMIT Family Medicine; ATTEND Internal Medicine
DX: R09.1 Pleurisy (principal); J18.9 Pneumonia, unspecified organism; J44.1 Chronic obstructive pulmonary disease with (acute) exacerbation; C85.90 Non-Hodgkin lymphoma, unspecified, unspecified site; N17.9 Acute kidney failure, unspecified; J44.0 Chronic obstructive pulmonary disease with (acute) lower respiratory infection; I10 Essential (primary) hypertension; K21.9 Gastro-esophageal reflux disease without esophagitis; E78.5 Hyperlipidemia, unspecified; R91.8 Other nonspecific abnormal finding of lung field; I27.20 Pulmonary hypertension, unspecified; R21 Rash and other nonspecific skin eruption; Z20.822 Contact with and (suspected) exposure to COVID-19; Z98.890 Other specified postprocedural states; Z87.891 Personal history of nicotine dependence; Z79.890 Hormone replacement therapy; Z79.899 Other long term (current) drug therapy
CPT/HCPCS: 36415; 71045; 71275; 80048; 80053; 81001; 83605; 83880; 84443; 84484; 85025; 86606; 87040; 87070; 87205; 87449; 93005; 93010; 93306; 94640; 96365; 96367; 96372; 96375; 96376; G0378; J0456; J0696; J1650; J2930; J3475; J3490; J7050; J7512; J7611; J7620; J7626; Q9967; U0002

== ENCOUNTER 2023-07-06 13:13 | Emergency (ER) | payer MEDICARE, OTHER ==
[2023-07-06 13:55] LABS: #Basophils 0.1 thou/uL (0.0-0.2); #Eosinphils 0.3 thou/uL (0.0-0.7); #Monocytes 1.9 thou/uL (0.11-0.59); #Neutrophils 6.6 thou/uL (1.40-6.50); %Basophils 0.8 % (0.0-1.0); %Eosinophils 2.1 % (0.0-10.0); %Lymphocytes 32.6 % (21.0-51.0); %Monocytes 14.5 % (0.0-10.0); %Neutrophils 49.7 % (42.0-75.0); Hematocrit 39.8 % (42.0-52.0); Hemoglobin 13.4 g/dL (14.0-18.0); Mean Corpuscular HGB CONC 33.7 g/dL (32.0-36.0); Mean Corpuscular Hemoglobin 30.5 pg (27.0-31.0); Mean Corpuscular Volume 90.5 fl (78.0-98.0); Mean Platelet Volume 10.6 fL (7.4-10.4); Platelet Count 431 10x3/uL (130-400); RBC Distribution Width 15.7 % (11.5-14.5); White Blood Cell (WBC) Count 13.3 10x3/uL (4.8-10.8)
[2023-07-06 14:14] LABS: ALT (SGPT) 24 U/L (8-55); AST (SGOT) 23 U/L (5-34); Albumin 4.2 g/dL (3.4-4.8); Alkaline Phosphatase 122 U/L (40-110); Anion Gap 14 mmol/L (10-20); BUN (Urea Nitrogen) 19 mg/dL (8.4-25.7); Bilirubin, Total 0.7 mg/dL (0.2-1.2); Calc. Creatinine Clearance 0 mL/min (70-130); Calcium 9.9 mg/dL (7.8-10.44); Carbon Dioxide 27 mmol/L (23-31); Chloride 102 mmol/L (98-107); Estimated GFR 50; Globulin 3.4 g/dL (2.4-3.5); Glucose 129 mg/dL (83-110); Potassium 4.1 mmol/L (3.5-5.1); Protein, Total 7.6 g/dL (5.8-8.1); Sodium 139 mmol/L (136-145)
== END 2023-07-06 15:37 | disposition home or self-care (01) ==
LOC: ERS 13:13
DX: R60.0 Localized edema (principal); I12.9 Hypertensive chronic kidney disease with stage 1 through stage 4 chronic kidney disease, or unspecified chronic kidney disease; N18.30 Chronic kidney disease, stage 3 unspecified; J44.9 Chronic obstructive pulmonary disease, unspecified; Z87.891 Personal history of nicotine dependence; Z79.899 Other long term (current) drug therapy
CPT/HCPCS: 36415; 80053; 83880; 84484; 85025; 93005; 93970

== ENCOUNTER 2023-09-29 08:59 | Emergency (ER) | payer OTHER ==
[2023-09-29 10:06] LABS: #Basophils 0.13 10x3/uL (0.0-0.2); %Basophils 0.9 % (0.0-1.0); %Eosinophils 2.4 % (0.0-10.0); %Lymphocytes 29.5 % (21.0-51.0); %Monocytes 14.2 % (0.0-10.0); %Neutrophils 52.7 % (42.0-75.0); Hematocrit 44.7 % (42.0-52.0); Hemoglobin 14.7 g/dL (14.0-18.0); Mean Corpuscular HGB CONC 32.9 g/dL (32.0-36.0); Mean Corpuscular Hemoglobin 29.6 pg (27.0-31.0); Mean Corpuscular Volume 89.9 fL (78.0-98.0); Mean Platelet Volume 10.3 fL (7.4-10.4); Platelet Count 343 10x3/uL (130-400); RBC Distribution Width 15.7 % (11.5-14.5); Red Blood Cell (RBC) Count 4.97 mill/uL (4.70-6.10)
[2023-09-29] MEDS ORDERED: Aspirin 325 MG TAB ONE (10:16)
[2023-09-29 10:24] LABS: ALT (SGPT) 22 U/L (8-55); AST (SGOT) 26 U/L (5-34); Albumin 3.7 g/dL (3.4-4.8); Alkaline Phosphatase 110 U/L (40-110); Anion Gap 16 mmol/L (10-20); BUN (Urea Nitrogen) 24 mg/dL (8.4-25.7); Bilirubin, Total 0.8 mg/dL (0.2-1.2); Calc. Creatinine Clearance 0 mL/min (70-130); Calcium 9.9 mg/dL (7.8-10.44); Carbon Dioxide 18 mmol/L (23-31); Chloride 107 mmol/L (98-107); Estimated GFR 54; Globulin 4.3 g/dL (2.4-3.5); Glucose 100 mg/dL (83-110); Lipase 15 U/L (8-78); Magnesium 1.9 mg/dL (1.6-2.6); Potassium 4.1 mmol/L (3.5-5.1); Sodium 137 mmol/L (136-145)
[2023-09-29 10:43] LABS: Troponin I 0.011 ng/mL (< 0.028)
[2023-09-29] MEDS ORDERED: Iopamidol-370 76% 500 ML MDV (1 ML CHARGE) ONE (11:11)
[2023-09-29 11:13] LABS: Bilirubin Negative (Negative); Blood, Urine Negative (Negative); Glucose, Urine (Dipstick) Negative (Negative); Ketone, Urine Negative (Negative); Leukocyte Negative (Negative); Nitrite Negative (Negative); Protein, Urine (Dipstick) Negative (Neg-Trace); Specific Gravity, Urine 1.015 (1.005-1.030); Urobilinogen 0.2 mg/dL (Less than 2)
[2023-09-29 11:24] LABS: Clarity Clear (Clear)
[2023-09-29 11:43] LABS: Bacteria/HPF None Seen HPF (None Seen); CAUTI Indications for Culture Alt mental st,lethar; RBC/HPF None Seen HPF (0-3); Squamous Epithelial None Seen HPF (0-3); WBC/HPF 0-3 HPF (0-3)
[2023-09-29 11:56] LABS: Urine Culture Reflex No No
[2023-09-29] MEDS ORDERED: methylPREDNISolone Sod Succ/PF 125 MG/2 ML VIAL ONE (12:26)
[2023-09-29] MEDS ORDERED: Ipratropium/Albuterol 3 ML NEB ONE (12:26)
[2023-09-29] MEDS ORDERED: Doxycycline 100 MG CAP ONE (13:58)
== END 2023-09-29 13:59 | disposition home or self-care (01) ==
LOC: ERS 08:59
DX: J44.9 Chronic obstructive pulmonary disease, unspecified (principal); K21.9 Gastro-esophageal reflux disease without esophagitis; I10 Essential (primary) hypertension; Z79.899 Other long term (current) drug therapy
CPT/HCPCS: 36415; 71045; 71275; 80053; 81001; 83605; 83690; 83735; 83880; 84443; 84484; 85025; 87040; 87086; 93005; J2930; J7620; Q9967

== ENCOUNTER 2023-09-29 16:09 | Inpatient (IN) | payer OTHER ==
[2023-09-29] MEDS ORDERED: Nitroglycerin 2% Ointment 1 INCH/1 GM Packet ONE (17:33)
[2023-09-29 18:13] LABS: ALT (SGPT) 21 U/L (8-55); AST (SGOT) 22 U/L (5-34); Albumin 3.7 g/dL (3.4-4.8); Alkaline Phosphatase 111 U/L (40-110); Anion Gap 18 mmol/L (10-20); BUN (Urea Nitrogen) 26 mg/dL (8.4-25.7); Bilirubin, Total 0.5 mg/dL (0.2-1.2); Calc. Creatinine Clearance 0 mL/min (70-130); Calcium 9.8 mg/dL (7.8-10.44); Carbon Dioxide 19 mmol/L (23-31); Chloride 105 mmol/L (98-107); Estimated GFR 50; Globulin 4.1 g/dL (2.4-3.5); Glucose 252 mg/dL (83-110); Magnesium 1.8 mg/dL (1.6-2.6); Protein, Total 7.8 g/dL (5.8-8.1); Sodium 138 mmol/L (136-145)
[2023-09-29 18:14] LABS: #Basophils 0.04 10x3/uL (0.0-0.2); #Eosinphils Less than 0.03 10x3/uL (0.0-0.7); %Basophils 0.4 % (0.0-1.0); %Lymphocytes 8.4 % (21.0-51.0); %Monocytes 0.4 % (0.0-10.0); %Neutrophils 90.4 % (42.0-75.0); Hematocrit 42.9 % (42.0-52.0); Hemoglobin 14.5 g/dL (14.0-18.0); Mean Corpuscular HGB CONC 33.8 g/dL (32.0-36.0); Mean Corpuscular Hemoglobin 29.2 pg (27.0-31.0); Mean Corpuscular Volume 86.5 fL (78.0-98.0); Mean Platelet Volume 10.4 fL (7.4-10.4); Platelet Count 412 10x3/uL (130-400); RBC Distribution Width 15.3 % (11.5-14.5); Red Blood Cell (RBC) Count 4.96 mill/uL (4.70-6.10)
[2023-09-29] MEDS ORDERED: Acetaminophen 500 MG TAB ONE (18:31)
[2023-09-29 18:32] LABS: Troponin I Less than 0.010 ng/mL (< 0.028)
[2023-09-29] MEDS ORDERED: Amiodarone 150 MG/3 ML VIAL ONE (19:33)
[2023-09-29] MEDS ORDERED: fentaNYL 50 mcg/mL 1 mL Vial ONE (19:34)
[2023-09-29] MEDS ORDERED: Amiodarone 450 MG, Admixture Fee 1 EACH in Dextrose 5% in Water 250 ML IVPB SCH (19:45)
[2023-09-29] MEDS ORDERED: Enoxaparin 100 MG (1 mL) SYRINGE ONE (20:04)
[2023-09-29] MEDS ORDERED: Ondansetron ODT 4 MG TAB SL PRN (20:15)
[2023-09-29] MEDS ORDERED: diphenhydrAMINE 50 MG/ML VIAL ONE (20:27)
[2023-09-29 22:03] VITALS: BMI 31.0
[2023-09-29] MEDS ORDERED: Ipratropium/Albuterol 3 ML NEB EZPAP PRN (22:31)
[2023-09-29] MEDS: Amiodarone 150 MG, Admixture Fee 1 EACH in Dextrose 5% in Water 100 ML IVPB SCH (22:58)
[2023-09-29] MEDS: Sodium Chloride 0.9% 1,000 ML IV SCH (23:05)
[2023-09-29 23:06] LABS: Troponin I 0.013 ng/mL (< 0.028)
[2023-09-30 04:51] LABS: #Basophils Less than 0.03 10x3/uL (0.0-0.2); #Eosinphils Less than 0.03 10x3/uL (0.0-0.7); %Basophils 0.2 % (0.0-1.0); %Lymphocytes 14.2 % (21.0-51.0); %Monocytes 4.6 % (0.0-10.0); %Neutrophils 80.6 % (42.0-75.0); Hemoglobin 14.7 g/dL (14.0-18.0); Mean Corpuscular HGB CONC 33.4 g/dL (32.0-36.0); Mean Corpuscular Hemoglobin 29.8 pg (27.0-31.0); Mean Corpuscular Volume 89.2 fL (78.0-98.0); Mean Platelet Volume 10.8 fL (7.4-10.4); Platelet Count 388 10x3/uL (130-400); RBC Distribution Width 15.2 % (11.5-14.5); Red Blood Cell (RBC) Count 4.93 mill/uL (4.70-6.10)
[2023-09-30 05:49] LABS: Anion Gap 16 mmol/L (10-20); BUN (Urea Nitrogen) 28 mg/dL (8.4-25.7); Calc. Creatinine Clearance 68 mL/min (70-130); Carbon Dioxide 20 mmol/L (23-31); Chloride 106 mmol/L (98-107); Estimated GFR 55; Glucose 186 mg/dL (83-110); Potassium 4.1 mmol/L (3.5-5.1); Sodium 138 mmol/L (136-145)
[2023-09-30 08:08] LABS: Troponin I 0.012 ng/mL (< 0.028)
[2023-09-30] MEDS ORDERED: Communication Order-Pharmacy FS SCH (09:00)
[2023-09-30] MEDS ORDERED: Nitroglycerin 50 MG/250 ML BOT 0 ML ONE (09:10)
[2023-09-30] MEDS ORDERED: Heparin 10,000 UNITS/ 10 ML VIAL ONE (09:10)
[2023-09-30] MEDS ORDERED: Atropine Sulfate 1 mg/1 ml Vial ONE (09:11)
[2023-09-30] MEDS ORDERED: Verapamil 5 MG/2 ML VIAL ONE (09:11)
[2023-09-30] MEDS ORDERED: Adenosine 6 mg (2 mL) VIAL ONE (09:11)
[2023-09-30] MEDS: Sodium Chloride 0.9% 1,000 ML IV SCH ×2 (09:50→12:37)
[2023-09-30] MEDS ORDERED: Midazolam HCl 2 mg/2 ml Vial ONE (09:55)
[2023-09-30] MEDS ORDERED: fentaNYL 50 mcg/mL 1 mL Vial ONE (09:55)
[2023-09-30] MEDS ORDERED: Sodium Chloride 0.9% 200 ML IV PRN (10:19)
[2023-09-30] MEDS ORDERED: Acetaminophen/Codeine 30-300mg Tablet PO PRN ×2 (10:19)
[2023-09-30] MEDS ORDERED: Iopamidol 370 76% 100 ML VIAL ONE (10:50)
[2023-09-30] MEDS: Metoprolol Tartrate 25 MG TAB PO SCH ×2 (12:32→20:26)
[2023-10-01] MEDS: Nitroglycerin 0.4 MG TAB (25 Tab Bottle) SL PRN (03:49)
[2023-10-01] MEDS: Acetaminophen 325 MG TAB PO PRN (04:17)
[2023-10-01] MEDS: Ondansetron PF 4 MG/2 ML Vial IVP PRN (06:24)
[2023-10-01 06:53] LABS: Troponin I 0.016 ng/mL (< 0.028)
[2023-10-01 09:28] LABS: Cardiac Risk 3.5 (Less than 4.5)
[2023-10-01] MEDS: Amlodipine 5 MG TAB PO SCH (12:21)
[2023-10-01 16:02] VITALS: BP 135/76; TEMP 97.5
[2023-10-01] MEDS ORDERED: Atorvastatin Calcium 20 MG TAB PO SCH (21:00)
[2023-10-02] MEDS ORDERED: Amlodipine 5 MG TAB PO SCH (09:00)
== END 2023-10-01 16:38 | DRG 287 ==
LOC: ERS 16:09 → 2NO 20:02
PROVIDERS: ADMIT Internal Medicine; ATTEND Internal Medicine
PROC: 4A023N7 Measurement of Cardiac Sampling and Pressure, Left Heart, Percutaneous Approach (ICD-10-PCS; principal; 2023-09-30)
PROC: B2111ZZ Fluoroscopy of Multiple Coronary Arteries using Low Osmolar Contrast (ICD-10-PCS; 2023-09-30)
PROC: B2151ZZ Fluoroscopy of Left Heart using Low Osmolar Contrast (ICD-10-PCS; 2023-09-30)
DX: R07.89 Other chest pain (principal); I47.20 Ventricular tachycardia, unspecified; N17.9 Acute kidney failure, unspecified; I25.110 Atherosclerotic heart disease of native coronary artery with unstable angina pectoris; Z79.899 Other long term (current) drug therapy; I49.3 Ventricular premature depolarization; K21.9 Gastro-esophageal reflux disease without esophagitis; I10 Essential (primary) hypertension; J44.9 Chronic obstructive pulmonary disease, unspecified; Z90.89 Acquired absence of other organs; Z98.890 Other specified postprocedural states; Z87.891 Personal history of nicotine dependence; E78.5 Hyperlipidemia, unspecified
CPT/HCPCS: 36415; 71045; 71275; 74176; 80048; 80053; 80061; 81001; 83605; 83690; 83735; 83880; 84443; 84484; 85025; 87040; 87086; 93005; 93010; 93458; 94760; 96361; 96372; 96374; 96375; 96376; 99152; C1760; C1769; C1894; J0153; J0282; J0461; J1200; J1644; J1650; J2250; J2405; J2930; J3010; J7050; J7070; J7620; Q9967

== ENCOUNTER 2024-04-15 06:59 | Inpatient (IN) | payer MEDICARE ==
[2024-04-15 07:41] LABS: #Basophils 0.08 10x3/uL (0.0-0.2); %Basophils 0.6 % (0.0-1.0); %Eosinophils 2.4 % (0.0-10.0); %Monocytes 12.4 % (0.0-10.0); %Neutrophils 65.2 % (42.0-75.0); Hematocrit 43.7 % (42.0-52.0); Hemoglobin 15.1 g/dL (14.0-18.0); Mean Corpuscular HGB CONC 34.6 g/dL (32.0-36.0); Mean Corpuscular Hemoglobin 30.6 pg (27.0-31.0); Mean Corpuscular Volume 88.5 fL (78.0-98.0); Platelet Count 362 10x3/uL (130-400); RBC Distribution Width 16.5 % (11.5-14.5); Red Blood Cell (RBC) Count 4.94 mill/uL (4.70-6.10)
[2024-04-15 07:57] LABS: ALT (SGPT) 31 U/L (8-55); AST (SGOT) 24 U/L (5-34); Albumin 3.6 g/dL (3.4-4.8); Alkaline Phosphatase 105 U/L (40-110); Anion Gap 16 mmol/L (10-20); BUN (Urea Nitrogen) 32 mg/dL (8.4-25.7); Bilirubin, Total 0.8 mg/dL (0.2-1.2); Calc. Creatinine Clearance 0 mL/min (70-130); Calcium 9.8 mg/dL (7.8-10.44); Carbon Dioxide 22 mmol/L (23-31); Chloride 105 mmol/L (98-107); Estimated GFR 58; Globulin 4.3 g/dL (2.4-3.5); Glucose 134 mg/dL (83-110); Potassium 3.9 mmol/L (3.5-5.1); Protein, Total 7.9 g/dL (5.8-8.1); Sodium 139 mmol/L (136-145)
[2024-04-15 08:01] LABS: Troponin I Less than 0.010 ng/mL (< 0.028)
[2024-04-15] MEDS ORDERED: Famotidine 20 MG TAB ONE (08:04)
[2024-04-15] MEDS ORDERED: Nitroglycerin 0.4 MG TAB 1 EACH ONE (08:04)
[2024-04-15] MEDS ORDERED: Aspirin Chewable 81 MG TAB ONE (08:05)
[2024-04-15] MEDS ORDERED: Mag-Al 1200 mg/1200 mg/30 ML UDCUP ONE (08:05)
[2024-04-15] MEDS ORDERED: Lidocaine Viscous Sol 2% 15 ml UD Cup ONE (08:05)
[2024-04-15] MEDS ORDERED: Acetaminophen 325 MG TAB ONE (08:38)
[2024-04-15 11:06] LABS: Troponin I Less than 0.010 ng/mL (< 0.028)
[2024-04-15 14:47] LABS: Troponin I Less than 0.010 ng/mL (< 0.028)
[2024-04-15] MEDS ORDERED: Acetaminophen 500 MG TAB PO PRN (15:24)
[2024-04-15] MEDS ORDERED: Ondansetron ODT 4 MG TAB PO PRN (15:24)
[2024-04-15] MEDS ORDERED: hydrALAZINE 20 MG/ML VIAL SLOW IVP PRN (15:24)
[2024-04-15] MEDS ORDERED: traMADol HCl 50 MG TAB PO PRN (15:24)
[2024-04-15] MEDS ORDERED: Ondansetron PF 4 MG/2 ML Vial IVP PRN (15:24)
[2024-04-15] MEDS: Nitroglycerin 0.4 MG TAB (25 Tab Bottle) SL PRN (15:26)
[2024-04-15] MEDS: Ipratropium/Albuterol 3 ML NEB NEB SCH (18:38)
[2024-04-15] MEDS: Mometasone 100 MCG HFA INHALER (RT USE) INH SCH (18:40)
[2024-04-15] MEDS: Metoprolol Tartrate 25 MG TAB PO SCH (20:14)
[2024-04-15] MEDS: Ranolazine ER 500 MG TAB PO SCH (20:15)
[2024-04-16 04:19] LABS: #Basophils 0.09 10x3/uL (0.0-0.2); %Basophils 0.8 % (0.0-1.0); %Eosinophils 3.3 % (0.0-10.0); %Lymphocytes 19.9 % (21.0-51.0); %Monocytes 12.9 % (0.0-10.0); %Neutrophils 62.8 % (42.0-75.0); Hematocrit 41.6 % (42.0-52.0); Hemoglobin 13.8 g/dL (14.0-18.0); Mean Corpuscular HGB CONC 33.2 g/dL (32.0-36.0); Mean Corpuscular Hemoglobin 30.1 pg (27.0-31.0); Mean Corpuscular Volume 90.6 fL (78.0-98.0); Mean Platelet Volume 10.5 fL (7.4-10.4); Platelet Count 317 10x3/uL (130-400); RBC Distribution Width 16.9 % (11.5-14.5); Red Blood Cell (RBC) Count 4.59 mill/uL (4.70-6.10)
[2024-04-16 04:37] LABS: Anion Gap 13 mmol/L (10-20); BUN (Urea Nitrogen) 28 mg/dL (8.4-25.7); Calc. Creatinine Clearance 75 mL/min (70-130); Calcium 9.2 mg/dL (7.8-10.44); Carbon Dioxide 21 mmol/L (23-31); Cardiac Risk 3.3 (Less than 4.5); Chloride 107 mmol/L (98-107); Cholesterol 186 mg/dl (< 200 Desired); Estimated GFR 71; Glucose 96 mg/dL (83-110); HDL Cholesterol 56 mg/dL (>60 Neg Risk); LDL Cholesterol, Calculated 117 mg/dL; Potassium 4.4 mmol/L (3.5-5.1); Sodium 137 mmol/L (136-145); Triglycerides 66 mg/dL (Less than 150)
[2024-04-16] MEDS: Levothyroxine Sodium 25 MCG TAB PO SCH (05:01)
[2024-04-16] MEDS: Pantoprazole DR 40 MG TAB PO SCH (08:09)
[2024-04-16] MEDS: Aspirin Chewable 81 MG TAB PO SCH (08:09)
[2024-04-16] MEDS: Atorvastatin Calcium 20 MG TAB PO SCH (08:09)
[2024-04-16] MEDS: Losartan 25 MG TAB PO SCH (08:12)
[2024-04-16] MEDS ORDERED: Non-Formulary Item 1 EACH (Fluticasone/Umeclidin/Vilanter [Trelegy Ellipta 100-62.5-25] 1 IH SCH (09:00)
[2024-04-16] MEDS ORDERED: Ketorolac Tromethamine 30 MG (1 mL) VIAL IVP PRN (12:07)
[2024-04-16] MEDS: Cyclobenzaprine 10 MG TAB PO SCH (20:19)
[2024-04-17] MEDS: Lidocaine 4% Patch TD SCH (08:48)
[2024-04-17 10:06] VITALS: BP 122/67; TEMP 97.4
[2024-04-17] MEDS ORDERED: Transdermal Patch Removal TOP SCH (21:00)
== END 2024-04-17 11:54 | disposition home or self-care (01) | DRG 552 ==
LOC: ERS 06:59 → ERHOLD 09:55 → OBS 12:54 → OBSVTOIN 04-17 05:48
PROVIDERS: ADMIT Family Medicine; ATTEND Internal Medicine
DX: M48.14 Ankylosing hyperostosis [Forestier], thoracic region (principal); I25.10 Atherosclerotic heart disease of native coronary artery without angina pectoris; K21.9 Gastro-esophageal reflux disease without esophagitis; J44.9 Chronic obstructive pulmonary disease, unspecified; Z87.891 Personal history of nicotine dependence; M19.90 Unspecified osteoarthritis, unspecified site; I12.9 Hypertensive chronic kidney disease with stage 1 through stage 4 chronic kidney disease, or unspecified chronic kidney disease; E78.5 Hyperlipidemia, unspecified; E03.9 Hypothyroidism, unspecified; N18.30 Chronic kidney disease, stage 3 unspecified; Z79.890 Hormone replacement therapy; Z79.82 Long term (current) use of aspirin; Z79.899 Other long term (current) drug therapy
CPT/HCPCS: 36415; 71045; 72128; 72131; 80048; 80053; 80061; 83880; 84484; 85025; 93005; 93010; 94640; 94760; G0378; J7620

== ENCOUNTER 2024-11-27 09:58 | Inpatient (IN) | payer OTHER ==
[2024-11-27] MEDS ORDERED: Dexamethasone 10 MG/ML VIAL ONE (10:28)
[2024-11-27 10:33] LABS: #Basophils 0.11 10x3/uL (0.0-0.2); #Eosinophils 0.28 10x3/uL (0.0-0.7); #Monocytes 2.09 10x3/uL (0.11-0.59); #Neutrophils 16.28 10x3/uL (1.40-6.50); %Basophils 0.5 % (0.0-1.0); %Eosinophils 1.3 % (0.0-10.0); %Lymphocytes 9.5 % (21.0-51.0); %Monocytes 10.0 % (0.0-10.0); %Neutrophils 78.2 % (42.0-75.0); Hematocrit 42.7 % (42.0-52.0); Hemoglobin 14.0 g/dL (14.0-18.0); Mean Corpuscular Hemoglobin 29.1 pg (27.0-31.0); Mean Corpuscular Volume 88.8 fL (78.0-98.0); Platelet Count 389 10x3/uL (130-400); Red Blood Cell (RBC) Count 4.81 mill/uL (4.70-6.10); White Blood Cell (WBC) Count 20.84 10x3/uL (4.8-10.8)
[2024-11-27 10:48] LABS: ALT (SGPT) 30 U/L (Less than 45); AST (SGOT) 34 U/L (11-34); Albumin 3.8 g/dL (3.1-4.5); Alkaline Phosphatase 109 U/L (40-110); Anion Gap 17 mmol/L (10-20); BUN (Urea Nitrogen) 11 mg/dL (8.4-25.7); Bilirubin, Total 0.9 mg/dL (0.3-1.2); Calc. Creatinine Clearance 0 mL/min (70-130); Calcium 9.6 mg/dL (7.8-10.44); Carbon Dioxide 21 mmol/L (23-31); Chloride 104 mmol/L (98-107); Globulin 4.1 g/dL (2.4-3.5); Glucose 114 mg/dL (83-110); Potassium 4.1 mmol/L (3.5-5.1); Sodium 138 mmol/L (136-145)
[2024-11-27] MEDS ORDERED: Ketorolac Tromethamine 30 MG (1 mL) VIAL ONE (11:25)
[2024-11-27 11:33] LABS: Troponin I Less than 0.010 ng/mL (< 0.028)
[2024-11-27 11:44] LABS: CAUTI Indications for Culture Alt mental st,lethar; Glucose, Urine (Dipstick) Normal (Negative); Leukocyte 500 Leu/uL (Negative); Protein, Urine (Dipstick) 50 mg/dL (Neg-Trace); RBC/HPF Greater than 50 HPF (0-3); Specific Gravity, Urine 1.034 (1.002-1.036); WBC/HPF Greater than 50 HPF (0-3)
[2024-11-27 11:45] LABS: Bacteria/HPF 1+ HPF (None Seen)
[2024-11-27 11:46] LABS: Urine Culture Reflex Yes Yes
[2024-11-27] MEDS ORDERED: Iopamidol-370 76% 500 ML MDV (1 ML CHARGE) ONE (13:46)
[2024-11-27] MEDS ORDERED: cefTRIAXone (ROCEPHIN) 1 GM VIAL ONE (13:55)
[2024-11-27 19:56] VITALS: BMI 30.7
[2024-11-27] MEDS ORDERED: Electrolyte Replacement Protocol 1 EACH FS SCH (20:00)
[2024-11-27] MEDS ORDERED: Acetaminophen 325 MG TAB PO PRN (20:00)
[2024-11-27] MEDS ORDERED: Calcium Carbonate 500 MG ChewTAB PO PRN (20:00)
[2024-11-27] MEDS: cefTRIAXone\\ROCEPHIN 1 GM in Sodium Chloride 0.9% 100 ML IVPB SCH (20:08)
[2024-11-27] MEDS: Famotidine 20 MG TAB PO SCH (20:12)
[2024-11-28 05:24] LABS: Hematocrit 38.5 % (42.0-52.0); Hemoglobin 12.9 g/dL (14.0-18.0); Mean Corpuscular Hemoglobin 28.9 pg (27.0-31.0); Mean Corpuscular Volume 86.1 fL (78.0-98.0); Platelet Count 368 10x3/uL (130-400); Red Blood Cell (RBC) Count 4.47 mill/uL (4.70-6.10); White Blood Cell (WBC) Count 26.05 10x3/uL (4.8-10.8)
[2024-11-28 05:30] LABS: ALT (SGPT) 23 U/L (Less than 45); AST (SGOT) 37 U/L (11-34); Albumin 3.1 g/dL (3.1-4.5); Alkaline Phosphatase 90 U/L (40-110); Anion Gap 15 mmol/L (10-20); BUN (Urea Nitrogen) 16 mg/dL (8.4-25.7); Bilirubin, Total 0.4 mg/dL (0.3-1.2); Calc. Creatinine Clearance 99 mL/min (70-130); Calcium 9.2 mg/dL (7.8-10.44); Carbon Dioxide 21 mmol/L (23-31); Chloride 106 mmol/L (98-107); Globulin 3.8 g/dL (2.4-3.5); Glucose 107 mg/dL (83-110); Potassium 4.4 mmol/L (3.5-5.1); Sodium 138 mmol/L (136-145)
[2024-11-28 05:46] LABS: Burr Cells SLIGHT = 2-5 cells HPF (0-1); Nucleated RBC (Manual Ct) 1 % (0); Platelet Adequacy Comment Platelets Normal; Polychromasia SLIGHT = 2-3 cells HPF (0-2); Smudge Cells 3.0 %
[2024-11-28] MEDS: Mometasone 100 MCG HFA INHALER (RT USE) INH SCH (07:19)
[2024-11-28] MEDS: cefTRIAXone\\ROCEPHIN 2 GM in Sodium Chloride 0.9% 100 ML IVPB SCH (08:07)
[2024-11-28] MEDS: Allopurinol 100 MG TAB PO SCH (08:07)
[2024-11-28] MEDS: Pantoprazole 40 MG DR.TAB PO SCH (08:08)
[2024-11-28] MEDS: Losartan 25 MG TAB PO SCH (08:08)
[2024-11-28] MEDS: Simethicone Chewable 80 MG TAB PO PRN (19:31)
[2024-11-28] MEDS: Nitroglycerin 0.4 MG TAB (25 Tab Bottle) SL PRN (20:07)
[2024-11-28] MEDS: Nitroglycerin 0.4 MG TAB (25 Tab Bottle) ONE (20:10)
[2024-11-28] MEDS: Ondansetron PF 4 MG/2 ML Vial IVP PRN (20:17)
[2024-11-28 21:06] LABS: Magnesium 1.9 mg/dL (1.6-2.6)
[2024-11-28 21:11] LABS: Troponin I 0.012 ng/mL (< 0.028)
[2024-11-28] MEDS ORDERED: Magnesium Sulfate 2 GM in Sodium Chloride 0.9% 250 ML 250 ML IVPB SCH (21:30)
[2024-11-28] MEDS: Magnesium 2 GM/50 ML(in water) 2 GM in Premix 1 BAG IVPB SCH (23:38)
[2024-11-29 08:08] LABS: #Basophils 0.08 10x3/uL (0.0-0.2); #Eosinophils 0.09 10x3/uL (0.0-0.7); #Monocytes 2.48 10x3/uL (0.11-0.59); #Neutrophils 17.49 10x3/uL (1.40-6.50); %Basophils 0.3 % (0.0-1.0); %Eosinophils 0.4 % (0.0-10.0); %Lymphocytes 14.0 % (21.0-51.0); %Monocytes 10.5 % (0.0-10.0); %Neutrophils 74.2 % (42.0-75.0); Hematocrit 39.0 % (42.0-52.0); Hemoglobin 13.1 g/dL (14.0-18.0); Mean Corpuscular Hemoglobin 29.6 pg (27.0-31.0); Mean Corpuscular Volume 88.0 fL (78.0-98.0); Platelet Count 353 10x3/uL (130-400); Red Blood Cell (RBC) Count 4.43 mill/uL (4.70-6.10); White Blood Cell (WBC) Count 23.58 10x3/uL (4.8-10.8)
[2024-11-29 08:25] LABS: Anion Gap 15 mmol/L (10-20); BUN (Urea Nitrogen) 18 mg/dL (8.4-25.7); Calc. Creatinine Clearance 91 mL/min (70-130); Calcium 9.3 mg/dL (7.8-10.44); Carbon Dioxide 22 mmol/L (23-31); Chloride 104 mmol/L (98-107); Glucose 90 mg/dL (83-110); Potassium 3.8 mmol/L (3.5-5.1); Sodium 137 mmol/L (136-145)
[2024-11-30 07:58] VITALS: TEMP 98.1
[2024-11-30 08:00] LABS: #Basophils 0.08 10x3/uL (0.0-0.2); #Eosinophils 0.25 10x3/uL (0.0-0.7); #Monocytes 1.85 10x3/uL (0.11-0.59); #Neutrophils 9.08 10x3/uL (1.40-6.50); %Basophils 0.6 % (0.0-1.0); %Eosinophils 1.8 % (0.0-10.0); %Lymphocytes 17.3 % (21.0-51.0); %Monocytes 13.5 % (0.0-10.0); %Neutrophils 66.2 % (42.0-75.0); Hematocrit 40.0 % (42.0-52.0); Hemoglobin 13.3 g/dL (14.0-18.0); Mean Corpuscular Hemoglobin 29.3 pg (27.0-31.0); Mean Corpuscular Volume 88.1 fL (78.0-98.0); Platelet Count 370 10x3/uL (130-400); Red Blood Cell (RBC) Count 4.54 mill/uL (4.70-6.10); White Blood Cell (WBC) Count 13.72 10x3/uL (4.8-10.8)
[2024-11-30 08:13] LABS: Anion Gap 16 mmol/L (10-20); BUN (Urea Nitrogen) 18 mg/dL (8.4-25.7); Calc. Creatinine Clearance 82 mL/min (70-130); Calcium 9.5 mg/dL (7.8-10.44); Carbon Dioxide 25 mmol/L (23-31); Chloride 99 mmol/L (98-107); Glucose 91 mg/dL (83-110); Potassium 4.1 mmol/L (3.5-5.1); Sodium 136 mmol/L (136-145)
[2024-11-30 11:30] VITALS: BP 121/65
== END 2024-11-30 12:39 | disposition home or self-care (01) | DRG 872 ==
LOC: ERS 09:58 → UNDOADMOB 18:45 → OBSVTOIN 18:45 → T4-B 18:45 → INTOOBSV 18:45 → OBSVTOIN 11-28 16:48 → T4-B 11-28 16:48
PROVIDERS: ADMIT Internal Medicine; ATTEND Family Medicine
DX: A41.9 Sepsis, unspecified organism (principal); N10 Acute pyelonephritis; Z79.899 Other long term (current) drug therapy; J44.9 Chronic obstructive pulmonary disease, unspecified; I10 Essential (primary) hypertension; I25.10 Atherosclerotic heart disease of native coronary artery without angina pectoris; K21.9 Gastro-esophageal reflux disease without esophagitis; M10.9 Gout, unspecified; N40.0 Benign prostatic hyperplasia without lower urinary tract symptoms; Z87.891 Personal history of nicotine dependence; Z98.890 Other specified postprocedural states
CPT/HCPCS: 36415; 71045; 74177; 80048; 80053; 81001; 83605; 83735; 84484; 85025; 87040; 87077; 87086; 87186; 93005; 93010; 94640; 94664; 96365; 96376; G0103; G0378; J0696; J1100; J1885; J2270; J2405; J3475; J7620; Q9967

== ENCOUNTER 2024-12-29 05:44 | Emergency (ER) | payer OTHER ==
[2024-12-29] MEDS ORDERED: Ketorolac Tromethamine 30 MG (1 mL) VIAL ONE (06:25)
[2024-12-29] MEDS ORDERED: Ondansetron PF 4 MG/2 ML Vial ONE (06:25)
[2024-12-29 07:18] LABS: #Basophils 0.12 10x3/uL (0.0-0.2); #Eosinophils 0.37 10x3/uL (0.0-0.7); #Monocytes 1.60 10x3/uL (0.11-0.59); #Neutrophils 5.29 10x3/uL (1.40-6.50); %Basophils 1.2 % (0.0-1.0); %Eosinophils 3.7 % (0.0-10.0); %Lymphocytes 26.0 % (21.0-51.0); %Monocytes 16.0 % (0.0-10.0); %Neutrophils 52.8 % (42.0-75.0); Hematocrit 40.9 % (42.0-52.0); Hemoglobin 13.6 g/dL (14.0-18.0); Mean Corpuscular Hemoglobin 28.5 pg (27.0-31.0); Mean Corpuscular Volume 85.6 fL (78.0-98.0); Platelet Count 390 10x3/uL (130-400); Red Blood Cell (RBC) Count 4.78 mill/uL (4.70-6.10); White Blood Cell (WBC) Count 10.02 10x3/uL (4.8-10.8)
[2024-12-29 07:37] LABS: Bacteria/HPF None Seen HPF (None Seen); CAUTI Indications for Culture Pelvic or flank pain; Glucose, Urine (Dipstick) Normal (Negative); Leukocyte Negative Leu/uL (Negative); Protein, Urine (Dipstick) Negative (Neg-Trace); RBC/HPF 0-3 HPF (0-3); Specific Gravity, Urine 1.025 (1.002-1.036)
[2024-12-29 07:42] LABS: Urine Culture Reflex No No
[2024-12-29 07:57] LABS: ALT (SGPT) 34 U/L (Less than 45); AST (SGOT) 39 U/L (11-34); Albumin 3.8 g/dL (3.1-4.5); Alkaline Phosphatase 117 U/L (40-110); Anion Gap 16 mmol/L (10-20); BUN (Urea Nitrogen) 11 mg/dL (8.4-25.7); Bilirubin, Total 0.5 mg/dL (0.3-1.2); Calc. Creatinine Clearance 0 mL/min (70-130); Calcium 9.2 mg/dL (7.8-10.44); Carbon Dioxide 23 mmol/L (23-31); Chloride 105 mmol/L (98-107); Globulin 3.6 g/dL (2.4-3.5); Glucose 108 mg/dL (83-110); Lipase 15 U/L (8-78); Potassium 3.5 mmol/L (3.5-5.1); Sodium 140 mmol/L (136-145)
[2024-12-29] MEDS ORDERED: Iopamidol 370 76% 100 ML VIAL ONE (11:15)
== END 2024-12-29 08:43 | disposition home or self-care (01) ==
LOC: ERS 05:44
DX: K57.32 Diverticulitis of large intestine without perforation or abscess without bleeding (principal); I10 Essential (primary) hypertension; J44.9 Chronic obstructive pulmonary disease, unspecified; Z87.891 Personal history of nicotine dependence
CPT/HCPCS: 74178; 80053; 81001; 83690; 85025; J1885; J2405; 96374; 96375

== ENCOUNTER 2025-02-24 08:39 | Emergency (ER) | payer MEDICARE, OTHER ==
[2025-02-24 09:54] LABS: #Basophils 0.15 10x3/uL (0.0-0.2); #Eosinophils 0.44 10x3/uL (0.0-0.7); #Monocytes 1.77 10x3/uL (0.11-0.59); #Neutrophils 9.46 10x3/uL (1.40-6.50); %Basophils 1.0 % (0.0-1.0); %Eosinophils 2.9 % (0.0-10.0); %Lymphocytes 21.6 % (21.0-51.0); %Monocytes 11.7 % (0.0-10.0); %Neutrophils 62.3 % (42.0-75.0); Hematocrit 40.7 % (42.0-52.0); Hemoglobin 13.4 g/dL (14.0-18.0); Mean Corpuscular Hemoglobin 27.7 pg (27.0-31.0); Mean Corpuscular Volume 84.3 fL (78.0-98.0); Platelet Count 461 10x3/uL (130-400); Red Blood Cell (RBC) Count 4.83 mill/uL (4.70-6.10); White Blood Cell (WBC) Count 15.18 10x3/uL (4.8-10.8)
[2025-02-24 10:28] LABS: Chloride 104 mmol/L (98-107); Potassium 4.3 mmol/L (3.5-5.1); Sodium 139 mmol/L (136-145)
[2025-02-24 10:29] LABS: Albumin 3.6 g/dL (3.1-4.5); Calcium 9.4 mg/dL (7.8-10.44)
[2025-02-24 10:30] LABS: Globulin 4.5 g/dL (2.4-3.5); Glucose 103 mg/dL (83-110)
[2025-02-24 10:31] LABS: Anion Gap 15 mmol/L (10-20); Carbon Dioxide 24 mmol/L (23-31)
[2025-02-24 10:33] LABS: Alkaline Phosphatase 137 U/L (40-110); Bilirubin, Total 0.7 mg/dL (0.3-1.2)
[2025-02-24 10:34] LABS: BUN (Urea Nitrogen) 13 mg/dL (8.4-25.7); Calc. Creatinine Clearance 0 mL/min (70-130)
[2025-02-24 10:36] LABS: ALT (SGPT) 17 U/L (Less than 45); AST (SGOT) 30 U/L (11-34)
== END 2025-02-24 15:24 | disposition home or self-care (01) ==
LOC: ERS 08:39
DX: R91.8 Other nonspecific abnormal finding of lung field (principal); R07.9 Chest pain, unspecified; J44.1 Chronic obstructive pulmonary disease with (acute) exacerbation; Z87.891 Personal history of nicotine dependence
CPT/HCPCS: 71045; 71275; 80053; 84484; 85025; 85379; 93005; 94760; J2919; 96374

== ENCOUNTER 2025-03-08 18:25 | Emergency (ER) | payer MEDICARE, OTHER ==
[2025-03-08 19:33] LABS: #Basophils 0.09 10x3/uL (0.0-0.2); #Eosinophils 0.45 10x3/uL (0.0-0.7); #Monocytes 1.89 10x3/uL (0.11-0.59); #Neutrophils 7.10 10x3/uL (1.40-6.50); %Basophils 0.7 % (0.0-1.0); %Eosinophils 3.4 % (0.0-10.0); %Lymphocytes 27.9 % (21.0-51.0); %Monocytes 14.2 % (0.0-10.0); %Neutrophils 53.3 % (42.0-75.0); Hematocrit 42.9 % (42.0-52.0); Hemoglobin 13.7 g/dL (14.0-18.0); Mean Corpuscular Hemoglobin 27.7 pg (27.0-31.0); Mean Corpuscular Volume 86.7 fL (78.0-98.0); Platelet Count 406 10x3/uL (130-400); Red Blood Cell (RBC) Count 4.95 mill/uL (4.70-6.10); White Blood Cell (WBC) Count 13.30 10x3/uL (4.8-10.8)
[2025-03-08 19:52] LABS: ALT (SGPT) 34 U/L (Less than 45); AST (SGOT) 35 U/L (11-34); Albumin 3.6 g/dL (3.1-4.5); Alkaline Phosphatase 150 U/L (40-110); Anion Gap 13 mmol/L (10-20); BUN (Urea Nitrogen) 11 mg/dL (8.4-25.7); Bilirubin, Total 0.4 mg/dL (0.3-1.2); Calc. Creatinine Clearance 0 mL/min (70-130); Calcium 9.5 mg/dL (7.8-10.44); Carbon Dioxide 25 mmol/L (23-31); Chloride 103 mmol/L (98-107); Globulin 4.2 g/dL (2.4-3.5); Glucose 178 mg/dL (83-110); Potassium 3.8 mmol/L (3.5-5.1); Sodium 137 mmol/L (136-145)
== END 2025-03-08 21:00 | disposition home or self-care (01) ==
LOC: ERS 18:25
DX: S61.012A Laceration without foreign body of left thumb without damage to nail, initial encounter (principal); S80.211A Abrasion, right knee, initial encounter; S90.811A Abrasion, right foot, initial encounter; S09.90XA Unspecified injury of head, initial encounter; I10 Essential (primary) hypertension; J44.9 Chronic obstructive pulmonary disease, unspecified; Z87.891 Personal history of nicotine dependence; W18.30XA Fall on same level, unspecified, initial encounter
CPT/HCPCS: 70450; 72125; 73564; 73630; 80053; 85025; J3010; 96374

== ENCOUNTER 2025-03-21 08:45 | Outpatient (CLI) | payer OTHER, MEDICARE | END 2025-03-21 08:46 | disposition home or self-care (01) | LOC: PET 08:45 | PROVIDERS: ATTEND Internal Medicine Hematology & Oncology | DX: R91.1 Solitary pulmonary nodule (principal); C82.93 Follicular lymphoma, unspecified, intra-abdominal lymph nodes; R11.2 Nausea with vomiting, unspecified | CPT/HCPCS: 78815; A9552 ==

== ENCOUNTER 2025-03-31 19:35 | Observation (INO) | payer MEDICARE, OTHER ==
[~2025-03-31 19:35] MED LIST changes: -Iopamidol-370 76% 500 ML 1 ML ONE; +Iopamidol-370 76% 500 ML MDV (1 ML CHARGE) ONE
[2025-03-31 20:13] LABS: #Basophils 0.11 10x3/uL (0.0-0.2); #Eosinophils 0.36 10x3/uL (0.0-0.7); #Monocytes 1.90 10x3/uL (0.11-0.59); #Neutrophils 5.11 10x3/uL (1.40-6.50); %Basophils 1.0 % (0.0-1.0); %Eosinophils 3.2 % (0.0-10.0); %Lymphocytes 33.0 % (21.0-51.0); %Monocytes 17.0 % (0.0-10.0); %Neutrophils 45.6 % (42.0-75.0); Hematocrit 39.1 % (42.0-52.0); Hemoglobin 12.7 g/dL (14.0-18.0); Mean Corpuscular Hemoglobin 27.9 pg (27.0-31.0); Mean Corpuscular Volume 85.9 fL (78.0-98.0); Platelet Count 297 10x3/uL (130-400); Red Blood Cell (RBC) Count 4.55 mill/uL (4.70-6.10); White Blood Cell (WBC) Count 11.19 10x3/uL (4.8-10.8)
[2025-03-31 20:29] LABS: ALT (SGPT) 25 U/L (Less than 45); AST (SGOT) 21 U/L (11-34); Albumin 3.5 g/dL (3.1-4.5); Alkaline Phosphatase 128 U/L (40-110); Anion Gap 13 mmol/L (10-20); BUN (Urea Nitrogen) 17 mg/dL (8.4-25.7); Bilirubin, Total 0.4 mg/dL (0.3-1.2); Calc. Creatinine Clearance 0 mL/min (70-130); Calcium 9.2 mg/dL (7.8-10.44); Carbon Dioxide 23 mmol/L (23-31); Chloride 105 mmol/L (98-107); Globulin 3.6 g/dL (2.4-3.5); Glucose 107 mg/dL (83-110); Lipase 20 U/L (8-78); Magnesium 1.9 mg/dL (1.6-2.6); Potassium 3.9 mmol/L (3.5-5.1); Sodium 137 mmol/L (136-145)
[2025-03-31] MEDS ORDERED: Acetaminophen 325 MG TAB PO PRN (21:46)
[2025-03-31] MEDS ORDERED: Calcium Carbonate 500 MG ChewTAB PO PRN (21:46)
[2025-03-31] MEDS ORDERED: Ondansetron PF 4 MG/2 ML Vial IVP PRN (21:46)
[2025-03-31] MEDS ORDERED: Guaifenesin DM 100-10/5 ML UDCUP PO PRN (21:46)
[2025-03-31] MEDS ORDERED: Senokot S 8.6-50 MG TAB PO PRN (21:46)
[2025-03-31] MEDS ORDERED: Nitroglycerin 0.4 MG TAB (25 Tab Bottle) SL PRN (21:53)
[2025-03-31 23:36] VITALS: BMI 29.4
[2025-04-01] MEDS: Lidocaine 2% Viscous Solution 10 ML, Aluminum & Magnesium Hydroxide 30 ML SSW SCH (00:10)
[2025-04-01] MEDS: Enoxaparin 100 MG (1 mL) SYRINGE SC SCH (00:34)
[2025-04-01 05:24] LABS: Magnesium 1.9 mg/dL (1.6-2.6)
[2025-04-01] MEDS: Aspirin 81 mg Enteric Coated Tablet PO SCH (08:18)
[2025-04-01] MEDS: Losartan 25 MG TAB PO SCH (08:18)
[2025-04-01] MEDS: Pantoprazole 40 MG DR.TAB PO SCH (08:18)
[2025-04-01] MEDS: Allopurinol 100 MG TAB PO SCH (08:19)
[2025-04-01 08:51] VITALS: TEMP 97.6
[2025-04-01] MEDS ORDERED: Enoxaparin 40 MG (0.4 mL) SYRINGE SC SCH (09:00)
[2025-04-01] MEDS ORDERED: Non-Formulary Item 1 EACH (Fluticasone/Umeclidin/Vilanter [Trelegy Ellipta 100-62.5-25] 1 IH SCH (09:00)
[2025-04-01] MEDS: Mometasone 100 MCG HFA INHALER (RT USE) INH SCH (09:21)
[2025-04-01] MEDS: Apixaban 5 MG TAB PO SCH (11:40)
[2025-04-01 12:02] VITALS: BP 147/77
== END 2025-04-01 12:55 | disposition home or self-care (01) ==
LOC: ERS 19:35 → OBS 21:46
PROVIDERS: ADMIT Student in an Organized Health Care Education/Training Program; ATTEND Family Medicine
DX: I26.93 Single subsegmental thrombotic pulmonary embolism without acute cor pulmonale (principal); R07.89 Other chest pain; E78.5 Hyperlipidemia, unspecified; I25.10 Atherosclerotic heart disease of native coronary artery without angina pectoris; D72.829 Elevated white blood cell count, unspecified; D64.9 Anemia, unspecified; R74.8 Abnormal levels of other serum enzymes; R91.1 Solitary pulmonary nodule; K21.9 Gastro-esophageal reflux disease without esophagitis; M10.9 Gout, unspecified; M19.90 Unspecified osteoarthritis, unspecified site; Z79.899 Other long term (current) drug therapy; Z79.82 Long term (current) use of aspirin; Z87.891 Personal history of nicotine dependence
CPT/HCPCS: 71045; 71275; 80053; 83690; 83735 ×2; 83880; 84443; 84484 ×3; 85025; 85379; 93005; 94640 ×2; 94664; 99285; J1650; Q9967; 36415

== ENCOUNTER 2025-04-08 08:04 | Emergency (ER) | payer OTHER ==
[2025-04-08 08:30] LABS: #Basophils 0.14 10x3/uL (0.0-0.2); #Eosinophils 0.66 10x3/uL (0.0-0.7); #Monocytes 2.06 10x3/uL (0.11-0.59); #Neutrophils 6.02 10x3/uL (1.40-6.50); %Basophils 1.1 % (0.0-1.0); %Eosinophils 5.4 % (0.0-10.0); %Lymphocytes 27.2 % (21.0-51.0); %Monocytes 16.8 % (0.0-10.0); %Neutrophils 49.3 % (42.0-75.0); Hematocrit 44.9 % (42.0-52.0); Hemoglobin 14.4 g/dL (14.0-18.0); Mean Corpuscular Hemoglobin 27.8 pg (27.0-31.0); Mean Corpuscular Volume 86.7 fL (78.0-98.0); Platelet Count 353 10x3/uL (130-400); Red Blood Cell (RBC) Count 5.18 mill/uL (4.70-6.10); White Blood Cell (WBC) Count 12.23 10x3/uL (4.8-10.8)
[2025-04-08 08:43] LABS: ALT (SGPT) 28 U/L (Less than 45); AST (SGOT) 32 U/L (11-34); Albumin 3.8 g/dL (3.1-4.5); Alkaline Phosphatase 157 U/L (40-110); Anion Gap 14 mmol/L (10-20); BUN (Urea Nitrogen) 7 mg/dL (8.4-25.7); Bilirubin, Total 0.7 mg/dL (0.3-1.2); Calc. Creatinine Clearance 0 mL/min (70-130); Calcium 9.7 mg/dL (7.8-10.44); Carbon Dioxide 26 mmol/L (23-31); Chloride 103 mmol/L (98-107); Globulin 4.1 g/dL (2.4-3.5); Glucose 94 mg/dL (83-110); Potassium 3.7 mmol/L (3.5-5.1); Sodium 139 mmol/L (136-145)
[2025-04-08 09:44] LABS: Bacteria/HPF None Seen HPF (None Seen); CAUTI Indications for Culture Alt mental st,lethar; Glucose, Urine (Dipstick) Normal (Negative); Leukocyte Negative Leu/uL (Negative); Protein, Urine (Dipstick) Negative (Neg-Trace); RBC/HPF 0-3 HPF (0-3); Specific Gravity, Urine 1.011 (1.002-1.036); WBC/HPF 0-3 HPF (0-3)
[2025-04-08 09:48] LABS: Urine Culture Reflex No No
== END 2025-04-08 09:41 ==
LOC: ERS 08:04
DX: R55 Syncope and collapse (principal); R29.700 NIHSS score 0; I10 Essential (primary) hypertension; J44.9 Chronic obstructive pulmonary disease, unspecified; Z87.891 Personal history of nicotine dependence; Z79.82 Long term (current) use of aspirin; Z79.01 Long term (current) use of anticoagulants
CPT/HCPCS: 70450; 71045; 80053; 81001; 84484; 85025; 93005

== ENCOUNTER 2025-04-11 04:11 | Emergency (ER) | payer OTHER ==
[2025-04-11] MEDS ORDERED: Ondansetron PF 4 MG/2 ML Vial ONE (04:35)
[2025-04-11 04:46] LABS: #Basophils 0.11 10x3/uL (0.0-0.2); #Eosinophils 0.55 10x3/uL (0.0-0.7); #Monocytes 1.66 10x3/uL (0.11-0.59); #Neutrophils 5.32 10x3/uL (1.40-6.50); %Basophils 0.9 % (0.0-1.0); %Eosinophils 4.6 % (0.0-10.0); %Lymphocytes 36.1 % (21.0-51.0); %Monocytes 13.8 % (0.0-10.0); %Neutrophils 44.3 % (42.0-75.0); Hematocrit 44.8 % (42.0-52.0); Hemoglobin 14.9 g/dL (14.0-18.0); Mean Corpuscular Hemoglobin 28.4 pg (27.0-31.0); Mean Corpuscular Volume 85.3 fL (78.0-98.0); Platelet Count 362 10x3/uL (130-400); Red Blood Cell (RBC) Count 5.25 mill/uL (4.70-6.10); White Blood Cell (WBC) Count 12.00 10x3/uL (4.8-10.8)
[2025-04-11 04:53] LABS: ALT (SGPT) 26 U/L (Less than 45); AST (SGOT) 35 U/L (11-34); Albumin 3.9 g/dL (3.1-4.5); Alkaline Phosphatase 168 U/L (40-110); Anion Gap 16 mmol/L (10-20); BUN (Urea Nitrogen) 9 mg/dL (8.4-25.7); Bilirubin, Total 0.6 mg/dL (0.3-1.2); Calc. Creatinine Clearance 0 mL/min (70-130); Calcium 9.7 mg/dL (7.8-10.44); Carbon Dioxide 24 mmol/L (23-31); Chloride 105 mmol/L (98-107); Globulin 4.3 g/dL (2.4-3.5); Glucose 110 mg/dL (83-110); Lipase 21 U/L (8-78); Potassium 3.8 mmol/L (3.5-5.1); Sodium 141 mmol/L (136-145)
[2025-04-11] MEDS ORDERED: Iopamidol 370 76% 100 ML VIAL ONE (11:58)
== END 2025-04-11 07:03 | disposition home or self-care (01) ==
LOC: ERS 04:11
DX: R07.9 Chest pain, unspecified (principal); M54.9 Dorsalgia, unspecified; I10 Essential (primary) hypertension; J44.9 Chronic obstructive pulmonary disease, unspecified; Z87.891 Personal history of nicotine dependence; Z86.711 Personal history of pulmonary embolism; Z79.01 Long term (current) use of anticoagulants
CPT/HCPCS: 71045; 71275; 76705; 80053; 83605; 83690; 83880; 84484 ×2; 85025; 93005; 96374; 96375; 99285; J2270; J2405; Q9967

== ENCOUNTER 2025-04-30 13:25 | Inpatient (IN) | payer OTHER ==
[2025-04-30 13:58] LABS: #Basophils 0.08 10x3/uL (0.0-0.2); #Eosinophils 0.34 10x3/uL (0.0-0.7); #Monocytes 1.28 10x3/uL (0.11-0.59); #Neutrophils 6.07 10x3/uL (1.40-6.50); %Basophils 0.8 % (0.0-1.0); %Eosinophils 3.4 % (0.0-10.0); %Lymphocytes 22.7 % (21.0-51.0); %Monocytes 12.7 % (0.0-10.0); %Neutrophils 60.0 % (42.0-75.0); Hematocrit 32.6 % (42.0-52.0); Hemoglobin 10.7 g/dL (14.0-18.0); Mean Corpuscular Hemoglobin 28.4 pg (27.0-31.0); Mean Corpuscular Volume 86.5 fL (78.0-98.0); Platelet Count 381 10x3/uL (130-400); Red Blood Cell (RBC) Count 3.77 mill/uL (4.70-6.10); White Blood Cell (WBC) Count 10.10 10x3/uL (4.8-10.8)
[2025-04-30] MEDS ORDERED: Iopamidol-370 76% 500 ML MDV (1 ML CHARGE) ONE (14:05)
[2025-04-30 15:24] LABS: Lipase 25 U/L (8-78)
[2025-04-30 15:26] LABS: Acetaminophen Less than 10 mcg/mL (Less than 10); Salicylate Less than 8.0 mg/dL (Less than 8.0)
[2025-04-30 15:27] LABS: ALT (SGPT) 19 U/L (Less than 45); AST (SGOT) 39 U/L (11-34); Albumin 2.6 g/dL (3.1-4.5); Alkaline Phosphatase 94 U/L (40-110); Anion Gap 17 mmol/L (10-20); BUN (Urea Nitrogen) 12 mg/dL (8.4-25.7); Bilirubin, Total 0.7 mg/dL (0.3-1.2); CK (CPK) 98 U/L (30-200); Calc. Creatinine Clearance 0 mL/min (70-130); Calcium 9.0 mg/dL (7.8-10.44); Carbon Dioxide 23 mmol/L (23-31); Chloride 98 mmol/L (98-107); Globulin 4.5 g/dL (2.4-3.5); Glucose 110 mg/dL (83-110); Potassium 3.4 mmol/L (3.5-5.1); Sodium 135 mmol/L (136-145)
[2025-04-30 15:27] LABS: CAUTI Indications for Culture Alt mental st,lethar; Glucose, Urine (Dipstick) Normal (Negative); Leukocyte 500 Leu/uL (Negative); Protein, Urine (Dipstick) 100 mg/dL (Neg-Trace); RBC/HPF Greater than 50 HPF (0-3); Specific Gravity, Urine 1.042 (1.002-1.036); WBC/HPF Greater than 50 HPF (0-3)
[2025-04-30 15:28] LABS: Bacteria/HPF 1+ HPF (None Seen)
[2025-04-30 15:29] LABS: Urine Culture Reflex Yes Yes
[2025-04-30 15:33] LABS: Cocaine Metabolite Screen Negative (Negative); THC/Cannabinoid Screen Negative (Negative); Tricyclic Screen Negative (Negative)
[2025-04-30] MEDS ORDERED: Cefepime 2 GM VIAL ONE (16:35)
[2025-04-30] MEDS ORDERED: Ondansetron PF 4 MG/2 ML Vial IVP PRN (16:47)
[2025-04-30] MEDS ORDERED: VANCOMYCIN 2 GRAM/400 ML BAG 400 ML ONE (17:30)
[2025-04-30] MEDS ORDERED: Potassium Chloride 40 MEQ in Premix 1 BAG IVPB SCH (18:30)
[2025-04-30 20:14] VITALS: BMI 27.1
[2025-04-30 23:12] LABS: Magnesium 1.9 mg/dL (1.6-2.6)
[2025-05-01] MEDS: Potassium Chloride 20 MEQ in Premix 1 BAG IVPB SCH ×2 (00:56→03:46)
[2025-05-01 05:09] LABS: #Basophils 0.09 10x3/uL (0.0-0.2); #Eosinophils 0.54 10x3/uL (0.0-0.7); #Monocytes 1.15 10x3/uL (0.11-0.59); #Neutrophils 5.20 10x3/uL (1.40-6.50); %Basophils 0.9 % (0.0-1.0); %Eosinophils 5.6 % (0.0-10.0); %Lymphocytes 27.0 % (21.0-51.0); %Monocytes 11.9 % (0.0-10.0); %Neutrophils 54.0 % (42.0-75.0); Hematocrit 29.4 % (42.0-52.0); Hemoglobin 9.2 g/dL (14.0-18.0); Mean Corpuscular Hemoglobin 27.7 pg (27.0-31.0); Mean Corpuscular Volume 88.6 fL (78.0-98.0); Platelet Count 817 10x3/uL (130-400); Red Blood Cell (RBC) Count 3.32 mill/uL (4.70-6.10); White Blood Cell (WBC) Count 9.65 10x3/uL (4.8-10.8)
[2025-05-01 05:29] LABS: Anion Gap 14 mmol/L (10-20); BUN (Urea Nitrogen) 12 mg/dL (8.4-25.7); Calc. Creatinine Clearance 67 mL/min (70-130); Calcium 8.8 mg/dL (7.8-10.44); Carbon Dioxide 24 mmol/L (23-31); Chloride 101 mmol/L (98-107); Glucose 74 mg/dL (83-110); Potassium 3.8 mmol/L (3.5-5.1); Sodium 135 mmol/L (136-145)
[2025-05-02 04:40] LABS: #Basophils 0.12 10x3/uL (0.0-0.2); #Eosinophils 0.58 10x3/uL (0.0-0.7); #Monocytes 1.35 10x3/uL (0.11-0.59); #Neutrophils 4.17 10x3/uL (1.40-6.50); %Basophils 1.3 % (0.0-1.0); %Eosinophils 6.2 % (0.0-10.0); %Lymphocytes 32.8 % (21.0-51.0); %Monocytes 14.5 % (0.0-10.0); %Neutrophils 44.9 % (42.0-75.0); Hematocrit 32.1 % (42.0-52.0); Hemoglobin 10.1 g/dL (14.0-18.0); Mean Corpuscular Hemoglobin 27.7 pg (27.0-31.0); Mean Corpuscular Volume 87.9 fL (78.0-98.0); Platelet Count 900 10x3/uL (130-400); Red Blood Cell (RBC) Count 3.65 mill/uL (4.70-6.10); White Blood Cell (WBC) Count 9.30 10x3/uL (4.8-10.8)
[2025-05-02 04:57] LABS: ALT (SGPT) 19 U/L (Less than 45); AST (SGOT) 39 U/L (11-34); Albumin 2.7 g/dL (3.1-4.5); Alkaline Phosphatase 105 U/L (40-110); Anion Gap 14 mmol/L (10-20); BUN (Urea Nitrogen) 7 mg/dL (8.4-25.7); Bilirubin, Total 0.7 mg/dL (0.3-1.2); Calc. Creatinine Clearance 81 mL/min (70-130); Calcium 9.3 mg/dL (7.8-10.44); Carbon Dioxide 26 mmol/L (23-31); Chloride 103 mmol/L (98-107); Globulin 4.7 g/dL (2.4-3.5); Glucose 79 mg/dL (83-110); Magnesium 1.7 mg/dL (1.6-2.6); Potassium 3.7 mmol/L (3.5-5.1); Sodium 139 mmol/L (136-145)
[2025-05-02] MEDS: Acetaminophen 325 MG TAB PO PRN (06:20)
[2025-05-02 14:41] VITALS: BMI 27.1
[2025-05-02] MEDS: Senokot S 8.6-50 MG TAB PO SCH ×2 (17:59→20:18)
[2025-05-03 04:23] LABS: #Basophils 0.14 10x3/uL (0.0-0.2); #Eosinophils 0.56 10x3/uL (0.0-0.7); #Monocytes 1.40 10x3/uL (0.11-0.59); #Neutrophils 3.44 10x3/uL (1.40-6.50); %Basophils 1.6 % (0.0-1.0); %Eosinophils 6.2 % (0.0-10.0); %Lymphocytes 38.3 % (21.0-51.0); %Monocytes 15.5 % (0.0-10.0); %Neutrophils 38.2 % (42.0-75.0); Hematocrit 30.8 % (42.0-52.0); Hemoglobin 9.4 g/dL (14.0-18.0); Mean Corpuscular Hemoglobin 27.4 pg (27.0-31.0); Mean Corpuscular Volume 89.8 fL (78.0-98.0); Platelet Count 818 10x3/uL (130-400); Red Blood Cell (RBC) Count 3.43 mill/uL (4.70-6.10); White Blood Cell (WBC) Count 9.01 10x3/uL (4.8-10.8)
[2025-05-03 04:42] LABS: ALT (SGPT) 18 U/L (Less than 45); AST (SGOT) 37 U/L (11-34); Albumin 2.6 g/dL (3.1-4.5); Alkaline Phosphatase 92 U/L (40-110); Anion Gap 13 mmol/L (10-20); BUN (Urea Nitrogen) 6 mg/dL (8.4-25.7); Bilirubin, Total 0.6 mg/dL (0.3-1.2); Calc. Creatinine Clearance 81 mL/min (70-130); Calcium 9.1 mg/dL (7.8-10.44); Carbon Dioxide 26 mmol/L (23-31); Chloride 106 mmol/L (98-107); Globulin 4.3 g/dL (2.4-3.5); Glucose 77 mg/dL (83-110); Magnesium 1.6 mg/dL (1.6-2.6); Potassium 3.8 mmol/L (3.5-5.1); Sodium 141 mmol/L (136-145)
[2025-05-03] MEDS: PNEUMOC 20-VAL CONJ-DIP CRM/PF 0.5 ML SYRINGE IM ONE (09:35)
[2025-05-03] MEDS: Bisacodyl 10 MG SUPP PR PRN (13:35)
[2025-05-03] MEDS: hydrALAZINE 20 MG/ML VIAL SLOW IVP PRN (18:10)
[2025-05-04] MEDS: Melatonin 3 MG TAB PO PRN (00:15)
[2025-05-04 04:44] LABS: #Basophils 0.12 10x3/uL (0.0-0.2); #Eosinophils 0.48 10x3/uL (0.0-0.7); #Monocytes 1.37 10x3/uL (0.11-0.59); #Neutrophils 3.83 10x3/uL (1.40-6.50); %Basophils 1.3 % (0.0-1.0); %Eosinophils 5.2 % (0.0-10.0); %Lymphocytes 37.2 % (21.0-51.0); %Monocytes 14.7 % (0.0-10.0); %Neutrophils 41.2 % (42.0-75.0); Hematocrit 30.7 % (42.0-52.0); Hemoglobin 9.7 g/dL (14.0-18.0); Mean Corpuscular Hemoglobin 27.6 pg (27.0-31.0); Mean Corpuscular Volume 87.5 fL (78.0-98.0); Platelet Count 806 10x3/uL (130-400); Red Blood Cell (RBC) Count 3.51 mill/uL (4.70-6.10); White Blood Cell (WBC) Count 9.30 10x3/uL (4.8-10.8)
[2025-05-04 04:57] LABS: ALT (SGPT) 17 U/L (Less than 45); AST (SGOT) 35 U/L (11-34); Albumin 2.6 g/dL (3.1-4.5); Alkaline Phosphatase 91 U/L (40-110); Anion Gap 14 mmol/L (10-20); BUN (Urea Nitrogen) 5 mg/dL (8.4-25.7); Bilirubin, Total 0.5 mg/dL (0.3-1.2); Calc. Creatinine Clearance 84 mL/min (70-130); Calcium 9.0 mg/dL (7.8-10.44); Carbon Dioxide 24 mmol/L (23-31); Chloride 107 mmol/L (98-107); Globulin 4.3 g/dL (2.4-3.5); Glucose 82 mg/dL (83-110); Magnesium 1.6 mg/dL (1.6-2.6); Potassium 3.5 mmol/L (3.5-5.1); Sodium 141 mmol/L (136-145)
[2025-05-04] MEDS: Amoxicillin/Potassium Clav 875 MG TAB PO SCH (09:04)
[2025-05-04] MEDS: Lactulose 20 GM (30 mL) UDCUP PO SCH (15:32)
[2025-05-04] MEDS: Apixaban 5 MG TAB PO SCH (21:50)
[2025-05-05 05:53] LABS: #Basophils 0.10 10x3/uL (0.0-0.2); #Eosinophils 0.47 10x3/uL (0.0-0.7); #Monocytes 1.39 10x3/uL (0.11-0.59); #Neutrophils 5.05 10x3/uL (1.40-6.50); %Basophils 1.0 % (0.0-1.0); %Eosinophils 4.6 % (0.0-10.0); %Lymphocytes 30.6 % (21.0-51.0); %Monocytes 13.7 % (0.0-10.0); %Neutrophils 49.8 % (42.0-75.0); Hematocrit 31.1 % (42.0-52.0); Hemoglobin 10.0 g/dL (14.0-18.0); Mean Corpuscular Hemoglobin 28.2 pg (27.0-31.0); Mean Corpuscular Volume 87.6 fL (78.0-98.0); Platelet Count 732 10x3/uL (130-400); Red Blood Cell (RBC) Count 3.55 mill/uL (4.70-6.10); White Blood Cell (WBC) Count 10.14 10x3/uL (4.8-10.8)
[2025-05-05 06:08] LABS: ALT (SGPT) 14 U/L (Less than 45); AST (SGOT) 26 U/L (11-34); Albumin 2.6 g/dL (3.1-4.5); Alkaline Phosphatase 91 U/L (40-110); Anion Gap 14 mmol/L (10-20); BUN (Urea Nitrogen) 4 mg/dL (8.4-25.7); Bilirubin, Total 0.5 mg/dL (0.3-1.2); Calc. Creatinine Clearance 94 mL/min (70-130); Calcium 9.0 mg/dL (7.8-10.44); Carbon Dioxide 23 mmol/L (23-31); Chloride 104 mmol/L (98-107); Globulin 4.3 g/dL (2.4-3.5); Glucose 71 mg/dL (83-110); Magnesium 1.6 mg/dL (1.6-2.6); Potassium 3.5 mmol/L (3.5-5.1); Sodium 137 mmol/L (136-145)
[2025-05-05] MEDS ORDERED: Non-Formulary Item 1 EACH (Losartan Potassium [Losartan Potassium] 100 MG Tablet) PO SCH (09:00)
[2025-05-05] MEDS ORDERED: Non-Formulary Item 1 EACH (Levothyroxine Sodium [Levothyroxine Sodium] 25 MCG Capsule) PO SCH (09:00)
[2025-05-05] MEDS: Pantoprazole 40 MG DR.TAB PO SCH (09:36)
[2025-05-05] MEDS: Losartan 25 MG TAB PO SCH (09:36)
[2025-05-05] MEDS: Allopurinol 100 MG TAB PO SCH (09:36)
[2025-05-06 05:18] LABS: #Basophils 0.10 10x3/uL (0.0-0.2); #Eosinophils 0.48 10x3/uL (0.0-0.7); #Monocytes 1.41 10x3/uL (0.11-0.59); #Neutrophils 5.06 10x3/uL (1.40-6.50); %Basophils 1.0 % (0.0-1.0); %Eosinophils 4.9 % (0.0-10.0); %Lymphocytes 28.0 % (21.0-51.0); %Monocytes 14.3 % (0.0-10.0); %Neutrophils 51.5 % (42.0-75.0); Hematocrit 34.1 % (42.0-52.0); Hemoglobin 10.6 g/dL (14.0-18.0); Mean Corpuscular Hemoglobin 27.5 pg (27.0-31.0); Mean Corpuscular Volume 88.3 fL (78.0-98.0); Platelet Count 708 10x3/uL (130-400); Red Blood Cell (RBC) Count 3.86 mill/uL (4.70-6.10); White Blood Cell (WBC) Count 9.83 10x3/uL (4.8-10.8)
[2025-05-06 05:39] LABS: Anion Gap 17 mmol/L (10-20); BUN (Urea Nitrogen) 7 mg/dL (8.4-25.7); Calc. Creatinine Clearance 94 mL/min (70-130); Calcium 9.6 mg/dL (7.8-10.44); Carbon Dioxide 24 mmol/L (23-31); Chloride 101 mmol/L (98-107); Glucose 88 mg/dL (83-110); Potassium 3.7 mmol/L (3.5-5.1); Sodium 138 mmol/L (136-145)
[2025-05-06] MEDS: Lactulose 20 GM (30 mL) UDCUP PO SCH (08:54)
[2025-05-06] MEDS: HYDROcodone/Acetaminophen 5/325 mg Tablet PO PRN (15:10)
[2025-05-08] MEDS: Ketorolac Tromethamine 30 MG (1 mL) VIAL IVP SCH (02:21)
[2025-05-08] MEDS: Lidocaine 4% Topical Sol 50 ML BOT TOP SCH ×2 (16:43→20:43)
[2025-05-09 05:00] LABS: #Basophils 0.08 10x3/uL (0.0-0.2); #Eosinophils 0.45 10x3/uL (0.0-0.7); #Monocytes 1.47 10x3/uL (0.11-0.59); #Neutrophils 5.26 10x3/uL (1.40-6.50); %Basophils 0.8 % (0.0-1.0); %Eosinophils 4.6 % (0.0-10.0); %Lymphocytes 25.8 % (21.0-51.0); %Monocytes 14.9 % (0.0-10.0); %Neutrophils 53.5 % (42.0-75.0); Hematocrit 33.9 % (42.0-52.0); Hemoglobin 10.8 g/dL (14.0-18.0); Mean Corpuscular Hemoglobin 27.8 pg (27.0-31.0); Mean Corpuscular Volume 87.4 fL (78.0-98.0); Platelet Count 489 10x3/uL (130-400); Red Blood Cell (RBC) Count 3.88 mill/uL (4.70-6.10); White Blood Cell (WBC) Count 9.84 10x3/uL (4.8-10.8)
[2025-05-09 05:25] LABS: Anion Gap 13 mmol/L (10-20); BUN (Urea Nitrogen) 13 mg/dL (8.4-25.7); Calc. Creatinine Clearance 100 mL/min (70-130); Calcium 9.7 mg/dL (7.8-10.44); Carbon Dioxide 25 mmol/L (23-31); Chloride 104 mmol/L (98-107); Glucose 79 mg/dL (83-110); Potassium 3.7 mmol/L (3.5-5.1); Sodium 138 mmol/L (136-145)
[2025-05-10 04:58] LABS: #Basophils 0.10 10x3/uL (0.0-0.2); #Eosinophils 0.69 10x3/uL (0.0-0.7); #Monocytes 1.17 10x3/uL (0.11-0.59); #Neutrophils 6.20 10x3/uL (1.40-6.50); %Basophils 1.0 % (0.0-1.0); %Eosinophils 6.6 % (0.0-10.0); %Lymphocytes 21.9 % (21.0-51.0); %Monocytes 11.2 % (0.0-10.0); %Neutrophils 59.0 % (42.0-75.0); Hematocrit 34.5 % (42.0-52.0); Hemoglobin 11.0 g/dL (14.0-18.0); Mean Corpuscular Hemoglobin 28.1 pg (27.0-31.0); Mean Corpuscular Volume 88.2 fL (78.0-98.0); Platelet Count 526 10x3/uL (130-400); Red Blood Cell (RBC) Count 3.91 mill/uL (4.70-6.10); White Blood Cell (WBC) Count 10.49 10x3/uL (4.8-10.8)
[2025-05-10 05:21] LABS: Anion Gap 13 mmol/L (10-20); BUN (Urea Nitrogen) 13 mg/dL (8.4-25.7); Calc. Creatinine Clearance 100 mL/min (70-130); Calcium 9.9 mg/dL (7.8-10.44); Carbon Dioxide 26 mmol/L (23-31); Chloride 104 mmol/L (98-107); Glucose 95 mg/dL (83-110); Potassium 4.4 mmol/L (3.5-5.1); Sodium 139 mmol/L (136-145)
[2025-05-10] MEDS: Melatonin 3 MG TAB PO PRN (22:45)
[2025-05-11 12:05] VITALS: BP 143/71; TEMP 98.1
== END 2025-05-11 14:06 | disposition home health service (06) | DRG 371 ==
LOC: ERS 13:25 → SDC/OP 18:18 → SURG A 18:31 → 2NO 20:51
PROVIDERS: ADMIT Surgery; ATTEND Internal Medicine
PROC: 3E03329 Introduction of Other Anti-infective into Peripheral Vein, Percutaneous Approach (ICD-10-PCS; principal; 2025-04-30)
PROC: 3E0234Z Introduction of Serum, Toxoid and Vaccine into Muscle, Percutaneous Approach (ICD-10-PCS; 2025-05-03)
DX: K65.1 Peritoneal abscess (principal); G93.41 Metabolic encephalopathy; C85.9A Non-Hodgkin lymphoma, unspecified, in remission; L02.211 Cutaneous abscess of abdominal wall; N17.9 Acute kidney failure, unspecified; N39.0 Urinary tract infection, site not specified; I10 Essential (primary) hypertension; E78.5 Hyperlipidemia, unspecified; E03.9 Hypothyroidism, unspecified; J44.9 Chronic obstructive pulmonary disease, unspecified; K21.9 Gastro-esophageal reflux disease without esophagitis; K59.00 Constipation, unspecified; M10.9 Gout, unspecified; M19.90 Unspecified osteoarthritis, unspecified site; Z98.890 Other specified postprocedural states; Z99.81 Dependence on supplemental oxygen; Z82.49 Family history of ischemic heart disease and other diseases of the circulatory system; Z86.711 Personal history of pulmonary embolism; Z23 Encounter for immunization
CPT/HCPCS: 36415; 36416; 70450; 71045; 74177; 80048; 80053; 80306; 80307; 81001; 82140; 82550; 83605; 83690; 83735; 84443; 84484; 85025; 87040; 87077; 87086; 87186; 90471; 90677; 93005; 93010; 94760; 96365; 96375; G0009; J0360; J0692; J1885; J2060; J2270; J2272; J2543; J3375; J3480; J7120; Q9967